=== PATIENT | male | born 1960 | race African-American/Black ===

== ENCOUNTER 2017-01-10 12:22 | Inpatient (IN) | payer OTHER ==
[2017-01-10 12:38] VITALS: BMI 22.5
--- NOTE | 2017-01-10 14:54 | HP ---
COWS - Scale Resting Pulse: 0= [place] 80 or Below Sweatin=Flushed/Facial Moisture Restless Observation: 3= Extraneous Movement Pupil Size: 2= Moderately Dilated Bone or Joint Aches: 2= Severe Diffuse Aches Runny Nose/ Eye Tearin= Runny Nose/Eyes GI Upset > 30mins: 3= Vomiting/Diarrhea Tremor Observation: 2= Slight Tremor Visible Yawning Observation: 2= >3x During Session Anxiety or Irritability: 2=Irritable/Anxious Goose Flesh Skin: 0=Smooth Skin COWS Score: 20 Admission ROS BHS - HPI Chief Complaint: I NEED HELP TO STOP USING HEROIN,COCAINE Allergies/Adverse Reactions: Allergies Allergy/AdvReac Type Severity Reaction Status Date / Time No Known Allergies Allergy Verified 01/10/17 14:44 History of Present Illness: THIS 56 YEARS OLD MALE WITH HEROIN AND COCAINE DEPENDENCE,SEEKING DETOX,LAST TREATMENT [facility] 08/15/15 TO 08/24/15 HEPATITIS C ANXIETY AND DEPRESSION NICOTINE DEPENDENCE LONGEST PERIOD OF SOBRIETY 1 YEAR Exam Limitations: No Limitations - Ebola screening Have you traveled outside of the country in the last 21 days: No Have you been sick,other than usual withdrawal symptoms: No - Review of Systems Constitutional: Chills, Diaphoresis, Loss of Appetite, Malaise, Night Sweats, Changes in sleep, Weakness, Unintentional Wgt. Loss EENT: reports: Tearing, Nose Congestion Respiratory: reports: No Symptoms reported Cardiac: reports: No Symptoms Reported GI: reports: Diarrhea, Nausea, Abdominal cramping : reports: No Symptoms Reported Musculoskeletal: reports: Back Pain, Muscle Pain Integumentary: reports: Dryness Neuro: reports: Headache, Tremors Endocrine: reports: No Symptoms Reported Hematology: reports: No Symptoms Reported Psychiatric: reports: No Sypmtoms Reported, Judgement Intact, Mood/Affect Appropiate, Anxious, Depressed (INSOMNIA) Patient History - Patient Medical History Hx Anemia: No Hx Asthma: No Hx Chronic Obstructive Pulmonary Disease (COPD): No Hx Cancer: No Hx Cardiac Disorders: No Hx Congestive Heart Failure: No Hx Hypertension: No Hx Hypercholesterolemia: No Hx Pacemaker: No HX Cerebrovascular Accident: No Hx Seizures: No Hx Dementia: No Hx Diabetes: No Hx Gastrointestinal Disorders: No Hx Liver Disease: Yes (hep C) Hx Genitourinary Disorders: No Hx Sexually Transmitted Disorders: No Hx Renal Disease (ESRD): No Hx Thyroid Disease: No Hx Human Immunodeficiency Virus (HIV): No (NEGATIVE HX 2015) Hx Hepatitis C: Yes (TREATED) Hx Depression: Yes Hx Suicide Attempt: No Hx Schizophrenia: No Other Medical History: NO SUICIDAL,NO HOMICIDAL - Patient Surgical History Past Surgical History: No Hx Neurologic Surgery: No Hx Cataract Extraction: No Hx Cardiac Surgery: No Hx Lung Surgery: No Hx Breast Surgery: No Hx Breast Biopsy: No Hx Abdominal Surgery: No Hx Appendectomy: No Hx Cholecystectomy: No Hx Genitourinary Surgery: No Hx Section: No Hx Orthopedic Surgery: No Anesthesia Reaction: No - PPD History Previous Implant?: Yes Documented Results: Positive w/o proof Date: 10/31/13 PPD to be Administered?: No - Smoking Cessation Smoking history: Current every day smoker Have you smoked in the past 12 months: Yes Aproximately how many cigarettes per day: 10 Hx Chewing Tobacco Use: No Initiated information on smoking cessation: Yes 'Breaking Loose' booklet given: 01/10/17 - Substance & Tx. History Hx Alcohol Use: No Hx Substance Use: Yes Substance Use Type: Cocaine, Heroin Hx Substance Use Treatment: Yes (201508/09/15 TO 08/24/15 REHAB) - Substances Abused Heroin Route: Inhalation Frequency: Daily Amount used: 3 BAGS Age of first use: 23 Date of Last Use: 01/09/17 Cocaine Route: Inhalation Frequency: 1-2 times per week Amount used: $25 Age of first use: 23 Date of Last Use: 01/03/17 Family Disease History - Family Disease History Family Disease History: Other: Brother (ADDICTED TO DRUGS) Admission Physical Exam S - Vital Signs Vital Signs: Vital Signs - 24 hr 01/10/17 12:36 Temperature 98.0 F Pulse Rate 80 Respiratory 18 Rate Blood Pressure 140/80 - Physical General Appearance: Yes: Moderate Distress, Intoxicated, Tremorous, Irritable, Sweating, Anxious HEENTM: Yes: Normal ENT Inspection, Normocephalic, ELOINA Respiratory: Yes: Lungs Clear, Normal Breath Sounds, No Respiratory Distress Neck: Yes: No masses,lesions,Nodules, Supple, Trachea in good position Breast: Yes: Within Normal Limits Cardiology: Yes: Within Normal Limits, Regular Rhythm, Regular Rate, S1, S2 Abdominal: Yes: Within Normal Limits, Normal Bowel Sounds, Non Tender, Flat, Soft Genitourinary: Yes: Within Normal Limits Back: Yes: Within Normal Limits Musculoskeletal: Yes: Within Normal Limits Extremities: Yes: Within Normal Limits, Normal Capillary Refill, Normal Inspection, Normal Range of Motion Neurological: Yes: efficiency analyst II-XII NML intact, Fully Oriented, Alert, Motor Strength 5/5 Integumentary: Yes: Within Normal Limits Lymphatic: Yes: Within Normal Limits - Diagnostic (1) Opioid dependence with withdrawal Current Visit: Yes Status: Acute (2) Cannabis dependence Current Visit: No Status: Acute (3) Drug-induced mood disorder Current Visit: Yes Status: Acute (4) MDD (major depressive disorder), recurrent, severe, with psychosis Current Visit: No Status: Acute (5) Hepatitis C Current Visit: No Status: Chronic Qualifiers: Viral hepatitis chronicity: chronic Hepatic coma status: without hepatic coma Qualified Code(s): B18.2 - Chronic viral hepatitis C (6) Nicotine dependence Current Visit: Yes Status: Acute (7) Cocaine dependence Current Visit: Yes Status: Acute Cleared for Admission [facility] - Detox or Rehab [facility] Level of Care: Medically Managed Detox Regimen/Protocol: Methadone [facility] Breath Alcohol Content Breath Alcohol Content: 0 Urine Drug Screen - Results Drug Screen Negative: No Urine Drug Screen Results: TRAVIS-Cocaine, OPI-Opiates, PCP-Phencyclidine
[2017-01-10] MEDS ORDERED: LOPERAMIDE HCL 2 MG CAPSULE PO PRN (15:10)
[2017-01-10] MEDS ORDERED: P-EPHED 60MG/TRIPROLIDI 2.5MG TABLET PO PRN (15:10)
[2017-01-10] MEDS ORDERED: MAGNESIUM CITRATE 300 ML BOTTLE PO PRN (15:10)
[2017-01-10] MEDS ORDERED: IBUPROFEN 400 MG TABLET (FP) PO PRN (15:10)
[2017-01-10] MEDS ORDERED: MAG HYDROX/AL HYDROX/SIMETH 30 ML UNIT-DOSE CUP PO PRN (15:10)
[2017-01-10] MEDS ORDERED: ACETAMINOPHEN 325 MG TABLET (FP) PO PRN (15:10)
[2017-01-10] MEDS ORDERED: guaiFENesin/D-METHORPHAN HB 10 ML UNIT-DOSE CUPS PO PRN (15:10)
[2017-01-10] MEDS ORDERED: MENTHOL/PHENOL 1 EACH UD MM PRN (15:10)
[2017-01-10] MEDS ORDERED: hydrOXYzine PAMOATE 25 MG CAPSULE (FP) PO PRN (15:10)
[2017-01-10] MEDS ORDERED: MAGNESIUM HYDROX 2400MG/30ML ORAL SUSPENSION 30 ML CUP PO PRN (15:10)
[2017-01-10] MEDS ORDERED: NICOTINE POLACRILEX 2 MG GUM BC PRN (15:10)
[2017-01-10] MEDS ORDERED: METHADONE HCL 10 MG TABLET (FOR DETOX USE ONLY) PO ONE ×2 (16:30→23:00)
[2017-01-10] MEDS: cloNIDine HCL 0.1 MG TABLET PO SCH ×2 (18:08→22:14)
[2017-01-10] MEDS: diazePAM 5 MG TABLET PO PRN ×2 (18:09→22:14)
--- NOTE | 2017-01-10 19:14 | CONSULT ---
[facility] Psychiatric Consult - Data Date of interview: 01/10/17 Admission source: [facility] Identifying data: One of several admissions to [facility] [place] [facility] for this 56 y/o AA male seeking detox treatment on for heroin and cocaine dependence.Patient is without children,domiciled and currently employed. Substance Abuse History: Confirmed by patient in this interview. See [facility] report for details. Smoking history: Current every day smoker. Have you smoked in the past 12 months: Yes. Aproximately how many cigarettes per day: 10. Hx Chewing Tobacco Use: No. Initiated information on smoking cessation: Yes. 'Breaking Loose' booklet given: 01/10/17. - Substance & Tx. History. Hx Alcohol Use: No. Hx Substance Use: Yes. Substance Use Type: Cocaine, Heroin. Hx Substance Use Treatment: Yes (201508/09/15 TO 08/24/15 REHAB). - Substances Abused. Heroin. Route: Inhalation. Frequency: Daily. Amount used: 3 BAGS. Age of first use: 23. Date of Last Use: 01/09/17. Cocaine. Route: Inhalation. Frequency: 1-2 times per week. Amount used: $25. Age of first use: 23. Date of Last Use: 01/03/17 Medical History: Hepatitis C (treated). Psychiatric History: Patient denies history of psychiatric hospitalizations.Did get psychiatric care during his seven years of incarceration.Diagnosed with MDD and treated in the past with sertraline and seroquel.Mr Medina did pursue OPD care after his release from longterm but he rapidly dropped out of treatment.Has been off psychotropic medications " for some time." No current OPD care providers.Patient indicates that he has been heavily invested in substance abuse.Denies history of suicide attempts.Mr Medina is known to the [facility] ([facility]). Physical/Sexual Abuse/Trauma History: No reported history of abuse. Additional Comment: Urine Drug Screen Results: TRAVIS-Cocaine, OPI-Opiates, PCP- Phencyclidine.Noted. Mental Status Exam - Mental Status Exam Alert and Oriented to: Time, Place, Person Cognitive Function: Good Patient Appearance: Well Groomed (wearing eyeglasses) Mood: Withdrawn, Anxious, Hopeful Affect: Mood Congruent, Constricted Patient Behavior: Fatigued, Appropriate, Cooperative Speech Pattern: Clear Voice Loudness: Normal Thought Process: Goal Oriented Thought Disorder: Not Present Hallucinations: Denies Suicidal Ideation: Denies Homicidal Ideation: Denies Insight/Judgement: Poor Sleep: Poorly, Difficulty falling asleep Appetite: Good Muscle strength/Tone: Normal Gait/Station: Normal Psychiatric Findings - Problem List ([place] 1, 2,3) (1) Opioid dependence with withdrawal Current Visit: Yes Status: Acute (2) Cocaine dependence Current Visit: Yes Status: Acute Qualifiers: Substance use status: uncomplicated Qualified Code(s): F14.20 - Cocaine dependence, uncomplicated (3) PCP abuse Current Visit: Yes Status: Acute (4) Nicotine dependence Current Visit: Yes Status: Acute Qualifiers: Nicotine product type: cigarettes Substance use status: in withdrawal Qualified Code(s): F17.213 - Nicotine dependence, cigarettes, with withdrawal (5) Drug-induced mood disorder Current Visit: Yes Status: Acute (6) Insomnia Current Visit: Yes Status: Acute - Initial Treatment Plan Initial Treatment Plan: Psychoeducation.Support.Detoxification.Seroquel 50 mg po hs.Side effects/benefits discussed with patient.He agrees with this careplan.Observation.
[2017-01-10] MEDS: THIAMINE HCL 100 MG TABLET (FP) PO SCH (22:14)
[2017-01-10] MEDS: QUEtiapine FUMARATE 50 MG TABLET PO SCH (22:14)
[2017-01-10] MEDS: CYCLOBENZAPRINE HCL 10 MG TABLET (FP) PO PRN (22:14)
[2017-01-11 02:25] LABS: PH,URINE 6.5 (5.0-8.0); URINE APPEARANCE CLEAR; URINE BILIRUBIN 1+ (NEGATIVE); URINE BLOOD NEGATIVE (NEGATIVE); URINE COLOR YELLOW; URINE GLUCOSE (UA) NEGATIVE (NEGATIVE); URINE KETONE NEGATIVE (NEGATIVE); URINE NITRITE NEGATIVE (NEGATIVE); URINE PROTEIN NEGATIVE (NEGATIVE); URINE UROBILINOGEN 0.2 mg/dL (0.2-1.0)
[2017-01-11] MEDS ORDERED: METHADONE HCL 10 MG TABLET (FOR DETOX USE ONLY) PO ONE (10:00)
[2017-01-11 10:09] LABS: MCH 31.3 pg (25.7-33.7); MCHC 33.5 g/dl (32.0-35.9); MEAN CELL VOLUME 93.4 fl (80-96); MEAN PLT VOLUME 9.2 fl (7.5-11.1); PLATELET COUNT 161 K/MM3 (134-434); RDW 13.2 % (11.9-15.9); WHITE BLOOD COUNT 6.5 K/mm3 (4.0-10.0)
[2017-01-11] MEDS: PRENATAL VITAMINS W/ FOLIC ACID TABLET (FP) PO SCH (10:14)
[2017-01-11] MEDS: cloNIDine HCL 0.1 MG TABLET PO SCH ×2 (10:14→22:21)
[2017-01-11] MEDS: diazePAM 5 MG TABLET PO PRN ×2 (10:14→22:21)
[2017-01-11 10:44] LABS: ALBUMIN 3.2 g/dl (3.4-5.0); ALK PHOS 46 U/L (45-117); ANION GAP 6 (8-16); BILIRUBIN,TOTAL 0.3 mg/dL (0.2-1.0); CALCIUM 8.5 mg/dL (8.5-10.1); CO2 27 mmol/L (21-32); CREATININE 0.9 mg/dL (0.7-1.3); GLUCOSE,RANDOM 83 mg/dL (74-106); SGOT/AST 18 U/L (15-37); SGPT/ALT 17 U/L (12-78); TOT PROT 6.4 g/dl (6.4-8.2)
[2017-01-11 11:37] LABS: URINE LEUK ESTERASE Negative (NEGATIVE)
--- NOTE | 2017-01-11 15:05 | PN ---
S COWS - Scale Resting Pulse: 0= [place] 80 or Below Sweatin= Chills/Flushing Restless Observation: 1= Difficult to Sit Still Pupil Size: 0= Normal to Room Light Bone or Joint Aches: 2= Severe Diffuse Aches Runny Nose/ Eye Tearin= Nasal Congestion GI Upset > 30mins: 0= None Tremor Observation of Outstretched Hands: 2= Slight Tremor Visible Yawning Observation: 2= >3x During Session Anxiety or Irritability: 2=Irritable/Anxious Goose Flesh Skin: 3=Piloerection COWS Score: 14 BHS Progress Note (SOAP) Subjective: Tremors, Body Aches, Fatigue. Objective: PT. A & O X 3, OBSERVED AMBULATING ON UNIT. NO ACUTE DISTRESS. 01/11/17 15:03 Vital Signs Temperature 97.0 F L 01/11/17 14:43 Pulse Rate 67 01/11/17 14:43 Respiratory Rate 18 01/11/17 14:43 Blood Pressure 98/65 01/11/17 14:43 O2 Sat by Pulse Oximetry (%) Laboratory Tests 01/10/17 01/11/17 01/11/17 22:50 07:40 07:40 WBC 6.5 RBC 4.56 Hgb 14.3 Hct 42.6 MCV 93.4 MCH 31.3 MCHC 33.5 RDW 13.2 Plt Count 161 MPV 9.2 Sodium 140 Potassium 4.3 Chloride 107 Carbon Dioxide 27 Anion Gap 6 L BUN 15 Creatinine 0.9 Creat Clearance w eGFR > 60 Random Glucose 83 Calcium 8.5 Total Bilirubin 0.3 D AST 18 D ALT 17 D Alkaline Phosphatase 46 Total Protein 6.4 Albumin 3.2 L Urine Color Yellow Urine Appearance Clear Urine pH 6.5 Ur Specific [place] 1.025 Urine Protein Negative Urine Glucose (UA) Negative Urine Ketones Negative Urine Blood Negative Urine Nitrite Negative Urine Bilirubin 1+ H Urine Urobilinogen 0.2 Ur Leukocyte Esterase Negative RPR Titer 01/11/17 07:40 WBC RBC Hgb Hct MCV MCH MCHC RDW Plt Count MPV Sodium Potassium Chloride Carbon Dioxide Anion Gap BUN Creatinine Creat Clearance w eGFR Random Glucose Calcium Total Bilirubin AST ALT Alkaline Phosphatase Total Protein Albumin Urine Color Urine Appearance Urine pH Ur Specific [place] Urine Protein Urine Glucose (UA) Urine Ketones Urine Blood Urine Nitrite Urine Bilirubin Urine Urobilinogen Ur Leukocyte Esterase RPR Titer Nonreactive LABS NOTED. Assessment: 01/11/17 15:03 WITHDRAWAL SYMPTOMS. Plan: CONTINUE DETOX. INCREASE DAILY PO FLUID INTAKE.
[2017-01-11] MEDS: QUEtiapine FUMARATE 50 MG TABLET PO SCH (22:21)
[2017-01-11] MEDS: THIAMINE HCL 100 MG TABLET (FP) PO SCH (22:21)
[2017-01-11] MEDS: CYCLOBENZAPRINE HCL 10 MG TABLET (FP) PO PRN (22:21)
--- NOTE | 2017-01-11 22:31 | EKG ---
Test Reason : Blood Pressure : / mmHG Vent. Rate : 070 BPM Atrial Rate : 070 BPM P-R Int : 196 ms QRS Dur : 078 ms QT Int : 398 ms P-R-T Axes : 082 078 066 degrees QTc Int : 429 ms POOR DATA QUALITY, INTERPRETATION MAY BE ADVERSELY AFFECTED NORMAL SINUS RHYTHM SEPTAL INFARCT , AGE UNDETERMINED ABNORMAL ECG NO PREVIOUS ECGS AVAILABLE Confirmed by CASEY RICO MD ([id number]) on 01/11/2017 10:31:02 PM Referred By: Confirmed By:CASEY RICO MD
[2017-01-12] MEDS ORDERED: METHADONE HCL 5 MG TABLET (FOR DETOX USE ONLY) PO ONE (10:00)
[2017-01-12] MEDS: cloNIDine HCL 0.1 MG TABLET PO SCH ×2 (10:08→22:09)
[2017-01-12] MEDS: PRENATAL VITAMINS W/ FOLIC ACID TABLET (FP) PO SCH (10:08)
--- NOTE | 2017-01-12 10:25 | PN ---
BHS COWS - Scale Resting Pulse: 0= [place] 80 or Below Sweatin= Chills/Flushing Restless Observation: 3= Extraneous Movement Pupil Size: 0= Normal to Room Light Bone or Joint Aches: 4=Acute Joint/Muscle Pain Runny Nose/ Eye Tearin= Nasal Congestion GI Upset > 30mins: 0= None Tremor Observation of Outstretched Hands: 2= Slight Tremor Visible Yawning Observation: 1= 1-2x During Session Anxiety or Irritability: 2=Irritable/Anxious Goose Flesh Skin: 0=Smooth Skin COWS Score: 14 BHS Progress Note (SOAP) Subjective: ANXIETY,SWEATS,FATIGUE. Objective: 01/12/17 10:27 Vital Signs Temperature 97.5 F L 01/12/17 10:00 Pulse Rate 73 01/12/17 10:00 Respiratory Rate 18 01/12/17 10:00 Blood Pressure 120/75 01/12/17 10:00 O2 Sat by Pulse Oximetry (%) Laboratory Last Values WBC 6.5 K/mm3 (4.0-10.0) 01/11/17 07:40 RBC 4.56 M/mm3 (4.00-5.60) 01/11/17 07:40 Hgb 14.3 GM/dL (11.7-16.9) 01/11/17 07:40 Hct 42.6 % (35.4-49) 01/11/17 07:40 MCV 93.4 fl (80-96) 01/11/17 07:40 MCH 31.3 pg (25.7-33.7) 01/11/17 07:40 MCHC 33.5 g/dl (32.0-35.9) 01/11/17 07:40 RDW 13.2 % (11.9-15.9) 01/11/17 07:40 Plt Count 161 K/MM3 (134-434) 01/11/17 07:40 MPV 9.2 fl (7.5-11.1) 01/11/17 07:40 Sodium 140 mmol/L (136-145) 01/11/17 07:40 Potassium 4.3 mmol/L (3.5-5.1) 01/11/17 07:40 Chloride 107 mmol/L (98-107) 01/11/17 07:40 Carbon Dioxide 27 mmol/L (21-32) 01/11/17 07:40 Anion Gap 6 (8-16) L 01/11/17 07:40 BUN 15 mg/dL (7-18) 01/11/17 07:40 Creatinine 0.9 mg/dL (0.7-1.3) 01/11/17 07:40 Creat Clearance w eGFR > 60 (>60) 01/11/17 07:40 Random Glucose 83 mg/dL (74-106) 01/11/17 07:40 Calcium 8.5 mg/dL (8.5-10.1) 01/11/17 07:40 Total Bilirubin 0.3 mg/dL (0.2-1.0) D 01/11/17 07:40 AST 18 U/L (15-37) D 01/11/17 07:40 ALT 17 U/L (12-78) D 01/11/17 07:40 Alkaline Phosphatase 46 U/L (45-117) 01/11/17 07:40 Total Protein 6.4 g/dl (6.4-8.2) 01/11/17 07:40 Albumin 3.2 g/dl (3.4-5.0) L 01/11/17 07:40 Urine Color Yellow 01/10/17 22:50 Urine Appearance Clear 01/10/17 22:50 Urine pH 6.5 (5.0-8.0) 01/10/17 22:50 Ur Specific [place] 1.025 (1.001-1.035) 01/10/17 22:50 Urine Protein Negative (NEGATIVE) 01/10/17 22:50 Urine Glucose (UA) Negative (NEGATIVE) 01/10/17 22:50 Urine Ketones Negative (NEGATIVE) 01/10/17 22:50 Urine Blood Negative (NEGATIVE) 01/10/17 22:50 Urine Nitrite Negative (NEGATIVE) 01/10/17 22:50 Urine Bilirubin 1+ (NEGATIVE) H 01/10/17 22:50 Urine Urobilinogen 0.2 mg/dL (0.2-1.0) 01/10/17 22:50 Ur Leukocyte Esterase Negative (NEGATIVE) 01/10/17 22:50 RPR Titer Nonreactive (NONREACTIVE) 01/11/17 07:40 Assessment: 11/24/17 10:27 WITHDRAWAL SX Plan: CONTINUE DETOX
[2017-01-12] MEDS: CYCLOBENZAPRINE HCL 10 MG TABLET (FP) PO PRN (22:09)
[2017-01-12] MEDS: diazePAM 5 MG TABLET PO PRN (22:09)
[2017-01-12] MEDS: QUEtiapine FUMARATE 50 MG TABLET PO SCH (22:09)
[2017-01-12] MEDS: THIAMINE HCL 100 MG TABLET (FP) PO SCH (22:09)
[2017-01-13] MEDS ORDERED: METHADONE HCL 5 MG TABLET (FOR DETOX USE ONLY) PO ONE (10:00)
[2017-01-13] MEDS: cloNIDine HCL 0.1 MG TABLET PO SCH ×2 (10:15→22:12)
[2017-01-13] MEDS: PRENATAL VITAMINS W/ FOLIC ACID TABLET (FP) PO SCH (10:15)
--- NOTE | 2017-01-13 13:57 | PN ---
BHS Progress Note (SOAP) Subjective: Stomach Cramping, Tremors, Fatigue, Sweating, Body Aches. Objective: PT. A & O X 2 (UNCERTAIN ABOUT DAY / DATE). NO ACUTE DISTRESS. 01/13/17 13:52 Vital Signs Temperature 97.5 F L 01/13/17 10:00 Pulse Rate 74 01/13/17 10:00 Respiratory Rate 18 01/13/17 10:00 Blood Pressure 122/79 01/13/17 10:00 O2 Sat by Pulse Oximetry (%) Laboratory Tests 01/10/17 01/11/17 01/11/17 22:50 07:40 07:40 WBC 6.5 RBC 4.56 Hgb 14.3 Hct 42.6 MCV 93.4 MCH 31.3 MCHC 33.5 RDW 13.2 Plt Count 161 MPV 9.2 Sodium 140 Potassium 4.3 Chloride 107 Carbon Dioxide 27 Anion Gap 6 L BUN 15 Creatinine 0.9 Creat Clearance w eGFR > 60 Random Glucose 83 Calcium 8.5 Total Bilirubin 0.3 D AST 18 D ALT 17 D Alkaline Phosphatase 46 Total Protein 6.4 Albumin 3.2 L Urine Color Yellow Urine Appearance Clear Urine pH 6.5 Ur Specific [place] 1.025 Urine Protein Negative Urine Glucose (UA) Negative Urine Ketones Negative Urine Blood Negative Urine Nitrite Negative Urine Bilirubin 1+ H Urine Urobilinogen 0.2 Ur Leukocyte Esterase Negative RPR Titer 01/11/17 07:40 WBC RBC Hgb Hct MCV MCH MCHC RDW Plt Count MPV Sodium Potassium Chloride Carbon Dioxide Anion Gap BUN Creatinine Creat Clearance w eGFR Random Glucose Calcium Total Bilirubin AST ALT Alkaline Phosphatase Total Protein Albumin Urine Color Urine Appearance Urine pH Ur Specific [place] Urine Protein Urine Glucose (UA) Urine Ketones Urine Blood Urine Nitrite Urine Bilirubin Urine Urobilinogen Ur Leukocyte Esterase RPR Titer Nonreactive LABS NOTED. Assessment: 01/13/17 13:55 WITHDRAWAL SYMPTOMS. Plan: CONTINUE DETOX. PT. REPORTS THAT HE HAS BEEN HEARING VOICES FROM "[place]." WHEN ASKED, PATIENT DENIES SUICIDAL / HOMICIDAL IDEATION. PSYCH CONSULT WITH PSYCHIATRIST DR. DIMITRIOS MAYNARD.
--- NOTE | 2017-01-13 18:18 | PN ---
Psychiatric Progress Note Vital Signs: Vital Signs Period Temp Pulse Resp BP Sys/Hennessy Pulse Ox Last 24 Hr 97.5 F-99.7 F 69-78 16-18 115-127/65-79 Date of Session: 01/13/17 Chief Complaint:: " I am fine.Much better than yesterday." HPI: Asked to see this patient for alteration of mental status.. ROS: Unremarkable.Patient is cognitively intact.No somatic complaints. Current Medications: Active Medications Generic Name Dose Route Start Last Admin Trade Name Freq PRN Reason Stop Dose Admin Acetaminophen 650 mg 01/10/17 15:10 Tylenol - PO Q4H PRN FEVER OR PAIN Al Hydroxide/Mg Hydroxide 30 ml 01/10/17 15:10 Mylanta Oral Suspension - PO Q6H PRN DYSPEPSIA Clonidine 0.1 mg 01/10/17 16:30 01/13/17 10:15 Catapres - PO 0.1 mg BID JAMES Administration Cyclobenzaprine HCl 10 mg 01/10/17 15:16 01/12/17 22:09 Flexeril - PO 10 mg TID PRN Administration MUSCLE SPASMS Eucalyptus/Menthol/Phenol/Sorbitol 1 each 01/10/17 15:10 Cepastat Lozenge - MM Q4H PRN SORE THROAT Guaifenesin 10 ml 01/10/17 15:10 Robitussin Dm - PO Q6H PRN COUGH Hydroxyzine Pamoate 25 mg 01/10/17 15:10 Vistaril - PO Q4H PRN AGITATION Ibuprofen 400 mg 01/10/17 15:10 Motrin - PO Q6H PRN SEVERE PAIN Loperamide HCl 4 mg 01/10/17 15:10 Imodium - PO Q6H PRN DIARRHEA Magnesium Citrate 300 ml 01/10/17 15:10 Citroma - PO Q48H PRN CONSTIPATION Magnesium Hydroxide 30 ml 01/10/17 15:10 Milk Of Magnesia - PO DAILY PRN CONSTIPATION Methadone HCl 5 mg 01/15/17 06:00 Dolophine - PO 01/15/17 06:01 ONCE@0600 ONE Methadone HCl 10 mg 01/14/17 10:00 Dolophine - PO 01/14/17 10:01 ONCE ONE Nicotine Polacrilex 2 mg 01/10/17 15:10 Nicorette Gum - BC Q2H PRN NICOTINE REPLACEMENT RX Multivit/Folic Acid/Iron 1 tab 01/11/17 10:00 01/13/17 10:15 Vitamins (Sjr) - PO 1 tab DAILY JAMES Administration Pseudoephedrine/Triprolidine 1 combo 01/10/17 15:10 Actifed - PO TID PRN NASAL CONGESTION Quetiapine Fumarate 50 mg 01/10/17 22:00 01/12/17 22:09 Seroquel - PO 50 mg HS JAMES Administration Thiamine HCl 100 mg 01/10/17 22:00 01/12/17 22:09 Vitamin B1 - PO 100 mg HS JAMES Administration Medication(s) Change(s): No clinical justification for changes of medications. Current Side Effect: No Lab tests ordered: No Lab tests reviewed: Yes Provider note:: Case discussed in the morning with ART SPECIALIST Александр Fuller.Chart reviewed.Patient is re-interviewed at bedside.Found in bed,awake and resting comfortably.Mr Medina is noted as neatly groomed,tranquil and well- controlled.He reports feeling much better,more capable of appreciating the negative effects of his addictions.Aware of the stress borne by his family because of his abuse of substances and now willing to address his issues in therapy.Uneventful hospital course.Stable mental status. Total face to face time:: 25 Mental Status Exam - Mental Status Exam Alert and Oriented to: Time, Place, Person Cognitive Function: Good Patient Appearance: Well Groomed (resting in bed ; tranquil,serene) Mood: Hopeful, Euthymic Affect: Appropriate, Normal Range Patient Behavior: Appropriate (well-mannered,friendly and future-oriented), Cooperative Speech Pattern: Clear, Appropriate Voice Loudness: Normal Thought Process: Intact, Goal Oriented Thought Disorder: Not Present Hallucinations: Denies Suicidal Ideation: Denies Homicidal Ideation: Denies Insight/Judgement: Fair (much improved) Sleep: Well Appetite: Good Muscle strength/Tone: Normal Gait/Station: Normal Psychiatric Treatment Plan - Problem List (1) Opioid dependence with withdrawal Comment: . (2) Cocaine dependence Qualifiers: Substance use status: uncomplicated Qualified Code(s): F14.20 - Cocaine dependence, uncomplicated Comment: . (3) PCP abuse Comment: . (4) Nicotine dependence Qualifiers: Nicotine product type: cigarettes Substance use status: in withdrawal Qualified Code(s): F17.213 - Nicotine dependence, cigarettes, with withdrawal Comment: . (5) Drug-induced mood disorder Comment: . (6) Insomnia Qualifiers: Insomnia type: unspecified Qualified Code(s): G47.00 - Insomnia, unspecified Comment: .
[2017-01-13] MEDS: THIAMINE HCL 100 MG TABLET (FP) PO SCH (22:12)
[2017-01-13] MEDS: CYCLOBENZAPRINE HCL 10 MG TABLET (FP) PO PRN (22:12)
[2017-01-13] MEDS: QUEtiapine FUMARATE 50 MG TABLET PO SCH (22:13)
[2017-01-14] MEDS: cloNIDine HCL 0.1 MG TABLET PO SCH ×2 (09:44→22:23)
[2017-01-14] MEDS: PRENATAL VITAMINS W/ FOLIC ACID TABLET (FP) PO SCH (09:45)
[2017-01-14] MEDS ORDERED: METHADONE HCL 10 MG TABLET (FOR DETOX USE ONLY) PO ONE (10:00)
--- NOTE | 2017-01-14 14:06 | PN ---
BHS Progress Note (SOAP) Subjective: Anxious, sweating, interrupted sleep Objective: 01/14/17 14:05 Last Vital Signs Temp Pulse Resp BP Pulse Ox 97.6 F 76 18 108/71 01/14/17 13:59 01/14/17 13:59 01/14/17 13:59 01/14/17 13:59 Laboratory Tests 01/10/17 01/11/17 01/11/17 22:50 07:40 07:40 WBC 6.5 RBC 4.56 Hgb 14.3 Hct 42.6 MCV 93.4 MCH 31.3 MCHC 33.5 RDW 13.2 Plt Count 161 MPV 9.2 Sodium 140 Potassium 4.3 Chloride 107 Carbon Dioxide 27 Anion Gap 6 L BUN 15 Creatinine 0.9 Creat Clearance w eGFR > 60 Random Glucose 83 Calcium 8.5 Total Bilirubin 0.3 D AST 18 D ALT 17 D Alkaline Phosphatase 46 Total Protein 6.4 Albumin 3.2 L Urine Color Yellow Urine Appearance Clear Urine pH 6.5 Ur Specific [place] 1.025 Urine Protein Negative Urine Glucose (UA) Negative Urine Ketones Negative Urine Blood Negative Urine Nitrite Negative Urine Bilirubin 1+ H Urine Urobilinogen 0.2 Ur Leukocyte Esterase Negative RPR Titer 01/11/17 07:40 WBC RBC Hgb Hct MCV MCH MCHC RDW Plt Count MPV Sodium Potassium Chloride Carbon Dioxide Anion Gap BUN Creatinine Creat Clearance w eGFR Random Glucose Calcium Total Bilirubin AST ALT Alkaline Phosphatase Total Protein Albumin Urine Color Urine Appearance Urine pH Ur Specific [place] Urine Protein Urine Glucose (UA) Urine Ketones Urine Blood Urine Nitrite Urine Bilirubin Urine Urobilinogen Ur Leukocyte Esterase RPR Titer Nonreactive Labs noted Assessment: 01/14/17 14:06 Withdrawal symptoms Plan: Continue detox Encouraged to drink lots of water
[2017-01-14 21:41] VITALS: TEMP 97.1
[2017-01-14] MEDS: THIAMINE HCL 100 MG TABLET (FP) PO SCH (22:23)
[2017-01-14] MEDS: QUEtiapine FUMARATE 50 MG TABLET PO SCH (22:23)
[2017-01-15] MEDS ORDERED: METHADONE HCL 5 MG TABLET (FOR DETOX USE ONLY) PO ONE (06:00)
[2017-01-15 06:19] VITALS: BP 122/74; PULSE 20
--- NOTE | 2017-01-15 10:44 | DS ---
[facility] Detox Discharge Summary Admission Date: 01/10/17 Discharge Date: 01/15/17 - History Present History: Cannabis Dependence, Cocaine Dependence, Opioid Dependence, Pcp Dependence Additional Comments: PATIENT GOING HOME SO THAT HE CAN RETURN TO WORK. PATIENT WILL ALSO RETURN TO [facility] OUTPATIENT SUBSTANCE USE TREATMENT [facility]GRAM ([facility]) FOR AFTERCARE. PATIENT WAS DISCHARGED FROM DETOX UNIT IN STABLE MEDICAL CONDITION. Pertinent Past History: Hep C, Depression, Nicotine Dependence, Insomnia, History of Positive PPD. - Physical Exam Results Vital Signs: Vital Signs Temperature 97.1 F L 01/15/17 06:18 Pulse Rate 20 L 01/15/17 06:18 Respiratory Rate 18 01/15/17 06:18 Blood Pressure 122/74 01/15/17 06:18 O2 Sat by Pulse Oximetry (%) Pertinent Admission Physical Exam Findings: WITHDRAWAL SYMPTOMS. Laboratory Tests 01/10/17 01/11/17 01/11/17 22:50 07:40 07:40 WBC 6.5 RBC 4.56 Hgb 14.3 Hct 42.6 MCV 93.4 MCH 31.3 MCHC 33.5 RDW 13.2 Plt Count 161 MPV 9.2 Sodium 140 Potassium 4.3 Chloride 107 Carbon Dioxide 27 Anion Gap 6 L BUN 15 Creatinine 0.9 Creat Clearance w eGFR > 60 Random Glucose 83 Calcium 8.5 Total Bilirubin 0.3 D AST 18 D ALT 17 D Alkaline Phosphatase 46 Total Protein 6.4 Albumin 3.2 L Urine Color Yellow Urine Appearance Clear Urine pH 6.5 Ur Specific [place] 1.025 Urine Protein Negative Urine Glucose (UA) Negative Urine Ketones Negative Urine Blood Negative Urine Nitrite Negative Urine Bilirubin 1+ H Urine Urobilinogen 0.2 Ur Leukocyte Esterase Negative RPR Titer 01/11/17 07:40 WBC RBC Hgb Hct MCV MCH MCHC RDW Plt Count MPV Sodium Potassium Chloride Carbon Dioxide Anion Gap BUN Creatinine Creat Clearance w eGFR Random Glucose Calcium Total Bilirubin AST ALT Alkaline Phosphatase Total Protein Albumin Urine Color Urine Appearance Urine pH Ur Specific [place] Urine Protein Urine Glucose (UA) Urine Ketones Urine Blood Urine Nitrite Urine Bilirubin Urine Urobilinogen Ur Leukocyte Esterase RPR Titer Nonreactive LABS NOTED. - Treatment Hospital Course: Detox Protocol Followed, Detoxed Safely, Responded well, Discharged Condition Good Patient has Accepted a Rehab Referral to: PT GOING HOME, WILL RETURN TO [facility] ([place], [place]) FOR AFTERCARE - Medication Discharge Medications: Ambulatory Orders Quetiapine Fumarate [Seroquel] 100 mg PO HS #30 tablet 01/10/17 - Diagnosis (1) Cocaine dependence Status: Chronic Qualifiers: Substance use status: uncomplicated Qualified Code(s): F14.20 - Cocaine dependence, uncomplicated (2) Opioid dependence with withdrawal Status: Acute (3) Cannabis dependence Status: Acute (4) Insomnia Status: Acute Qualifiers: Insomnia type: unspecified Qualified Code(s): G47.00 - Insomnia, unspecified (5) PCP abuse Status: Acute (6) Hepatitis C Status: Chronic Qualifiers: Viral hepatitis chronicity: chronic Hepatic coma status: without hepatic coma Qualified Code(s): B18.2 - Chronic viral hepatitis C (7) Nicotine dependence Status: Chronic Qualifiers: Nicotine product type: cigarettes Substance use status: in withdrawal Qualified Code(s): F17.213 - Nicotine dependence, cigarettes, with withdrawal (8) Drug-induced mood disorder Status: Acute - AMA Did Patient Leave Against Medical Advice: No
== END 2017-01-15 09:10 | disposition home or self-care (01) | DRG 773 ==
LOC: YASAS 12:22 → Y3N 16:00
PROVIDERS: ADMIT Internal Medicine; ATTEND Internal Medicine
PROC: HZ2ZZZZ Detoxification Services for Substance Abuse Treatment (ICD-10-PCS; principal; 2017-01-10)
DX: F11.23 Opioid dependence with withdrawal (principal); F14.20 Cocaine dependence, uncomplicated; F12.20 Cannabis dependence, uncomplicated; F16.10 Hallucinogen abuse, uncomplicated; F17.213 Nicotine dependence, cigarettes, with withdrawal; F19.24 Other psychoactive substance dependence with psychoactive substance-induced mood disorder; F41.9 Anxiety disorder, unspecified; F33.3 Major depressive disorder, recurrent, severe with psychotic symptoms; G47.00 Insomnia, unspecified; B18.2 Chronic viral hepatitis C; R76.11 Nonspecific reaction to tuberculin skin test without active tuberculosis
CPT/HCPCS: 36415; 71020-TC; 80053; 81003; 85027; 86593; 93005; 93010

== ENCOUNTER 2017-01-30 09:12 | Inpatient (IN) | payer OTHER ==
[2017-01-30 11:28] VITALS: BMI 21.6
--- NOTE | 2017-01-30 13:47 | HP ---
COWS - Scale Resting Pulse: 0= [place] 80 or Below Sweatin= Chills/Flushing Restless Observation: 3= Extraneous Movement Pupil Size: 0= Normal to Room Light Bone or Joint Aches: 2= Severe Diffuse Aches Runny Nose/ Eye Tearin= Runny Nose/Eyes GI Upset > 30mins: 1= Stomach Cramp Tremor Observation: 2= Slight Tremor Visible Yawning Observation: 1= 1-2x During Session Anxiety or Irritability: 2=Irritable/Anxious Goose Flesh Skin: 0=Smooth Skin COWS Score: 14 Admission ROS S - [facility] Chief Complaint: withdrawal sx Allergies/Adverse Reactions: Allergies Allergy/AdvReac Type Severity Reaction Status Date / Time No Known Allergies Allergy Verified 01/30/17 12:10 History of Present Illness: 56 years old male with long history of heroin nicotine dependence has weight loss positive ppd and depression and anxiety is admitted to detox Exam Limitations: No Limitations - Ebola screening Have you traveled outside of the country in the last 21 days: No Have you had contact with anyone from an Ebola affected area: No Have you been sick,other than usual withdrawal symptoms: No Do you have a fever: No - Review of Systems Constitutional: Loss of Appetite, Changes in sleep, Unintentional Wgt. Loss, Unexplained wgt Loss EENT: reports: Blurred Vision (eye glasses) Respiratory: reports: No Symptoms reported Cardiac: reports: No Symptoms Reported GI: reports: Nausea, Poor Appetite, Poor Fluid Intake, Indigestion, Abdominal cramping : reports: No Symptoms Reported Musculoskeletal: reports: No Symptoms Reported Integumentary: reports: No Symptoms Reported Neuro: reports: Tremors Endocrine: reports: No Symptoms Reported Hematology: reports: No Symptoms Reported Psychiatric: reports: Judgement Intact, Orientated x3, Depressed Other Systems: Reviewed and Negative Patient History - Patient Medical History Hx Anemia: No Hx Asthma: No Hx Chronic Obstructive Pulmonary Disease (COPD): No Hx Cancer: No Hx Cardiac Disorders: No Hx Congestive Heart Failure: No Hx Hypertension: No Hx Hypercholesterolemia: No Hx Pacemaker: No HX Cerebrovascular Accident: No Hx Seizures: No Hx Dementia: No Hx Diabetes: No Hx Gastrointestinal Disorders: No Hx Liver Disease: Yes (hep C) Hx Genitourinary Disorders: No Hx Sexually Transmitted Disorders: No Hx Renal Disease (ESRD): No Hx Thyroid Disease: No Hx Human Immunodeficiency Virus (HIV): No (NEGATIVE HX 2015) Hx Hepatitis C: Yes (TREATED) Hx Depression: Yes Hx Suicide Attempt: No Hx Bipolar Disorder: No Hx Schizophrenia: No - Patient Surgical History Past Surgical History: No Hx Neurologic Surgery: No Hx Cataract Extraction: No Hx Cardiac Surgery: No Hx Lung Surgery: No Hx Breast Surgery: No Hx Breast Biopsy: No Hx Abdominal Surgery: No Hx Appendectomy: No Hx Cholecystectomy: No Hx Genitourinary Surgery: No Hx Orthopedic Surgery: No - PPD History Previous Implant?: Yes Documented Results: Positive w/proof Implanted On Prior [facility] Admission?: No Date: 10/31/13 Results: CXR negative PPD to be Administered?: No - Smoking Cessation Smoking history: Current every day smoker Have you smoked in the past 12 months: Yes Aproximately how many cigarettes per day: 12 Cigars Per Day: 0 Hx Chewing Tobacco Use: No Initiated information on smoking cessation: Yes 'Breaking Loose' booklet given: 01/30/17 - Substance & Tx. History Hx Alcohol Use: No Hx Substance Use: Yes Substance Use Type: Cocaine, Marijuana, Opiates Hx Substance Use Treatment: Yes (12/2016 [facility] - Substances Abused Heroin Route: Inhalation Frequency: Daily Amount used: 2 bags Age of first use: 23 Date of Last Use: 01/28/17 Cocaine Route: Inhalation Frequency: 1-3 times last 30 days Amount used: $20-25 Age of first use: 23 Date of Last Use: 01/27/17 Marijuana/Hashish Route: Smoking Frequency: 1-3 times last 30 days Amount used: 1 joint Age of first use: 23 Date of Last Use: 01/27/17 Family Disease History - Family Disease History Family Disease History: [place]: Mother (), Sister, Other: Father (no contact ), Mother, Brother (ADDICTED TO DRUGS) Admission Physical Exam BHS - Vital Signs Vital Signs: Vital Signs - 24 hr 01/30/17 11:21 Temperature 97.4 F L Pulse Rate 62 Respiratory 16 Rate Blood Pressure 121/68 - Physical General Appearance: Yes: Appropriately Dressed, Mild Distress, Tremorous, Irritable, Sweating, Anxious HEENTM: Yes: Hearing grossly Normal, Normal ENT Inspection, Normocephalic, Normal Voice Respiratory: Yes: Chest Non-Tender, Lungs Clear, Normal Breath Sounds, No Respiratory Distress, No Accessory Muscle Use Neck: Yes: Supple, Trachea in good position Breast: Yes: Breasts Symetrical Cardiology: Yes: Regular Rhythm, Regular Rate, S1, S2 Abdominal: Yes: Non Tender, Flat Genitourinary: Yes: Within Normal Limits Back: Yes: Normal Inspection Musculoskeletal: Yes: full range of Motion, Gait Steady Extremities: Yes: Normal Inspection, Normal Range of Motion, Non-Tender, Tremors Neurological: Yes: Fully Oriented, Alert, Motor Strength 5/5, Normal Response, Depressed Affect Integumentary: Yes: Warm Lymphatic: Yes: Within Normal Limits - Diagnostic (1) Opioid dependence with withdrawal Current Visit: Yes Status: Acute Comment: . (2) Anxiety Current Visit: Yes Status: Suspected (3) Hepatitis C Current Visit: Yes Status: Resolved Qualifiers: Viral hepatitis chronicity: unspecified Hepatic coma status: without hepatic coma Qualified Code(s): B19.20 - Unspecified viral hepatitis C without hepatic coma (4) Nicotine dependence Current Visit: Yes Status: Acute Qualifiers: Nicotine product type: cigarettes Substance use status: in withdrawal Qualified Code(s): F17.213 - Nicotine dependence, cigarettes, with withdrawal Comment: . (5) Positive PPD Current Visit: Yes Status: Resolved Cleared for Admission [facility] - Detox or Rehab [facility] Level of Care: Medically Managed Detox Regimen/Protocol: Methadone [facility] Breath Alcohol Content Breath Alcohol Content: 0 Urine Drug Screen - Results Drug Screen Negative: No Urine Drug Screen Results: THC-Marijuana, TRAVIS-Cocaine, OPI-Opiates, BZO- Benzodiazepines
[2017-01-30] MEDS ORDERED: NICOTINE POLACRILEX 4 MG GUM BUC PRN (14:07)
[2017-01-30] MEDS ORDERED: MENTHOL/PHENOL 1 EACH UD MM PRN (14:07)
[2017-01-30] MEDS ORDERED: MAG HYDROX/AL HYDROX/SIMETH 30 ML UNIT-DOSE CUP PO PRN (14:07)
[2017-01-30] MEDS ORDERED: MAGNESIUM HYDROX 2400MG/30ML ORAL SUSPENSION 30 ML CUP PO PRN (14:07)
[2017-01-30] MEDS ORDERED: LOPERAMIDE HCL 2 MG CAPSULE PO PRN (14:07)
[2017-01-30] MEDS ORDERED: P-EPHED 60MG/TRIPROLIDI 2.5MG TABLET PO PRN (14:07)
[2017-01-30] MEDS ORDERED: MAGNESIUM CITRATE 300 ML BOTTLE PO PRN (14:07)
[2017-01-30] MEDS ORDERED: IBUPROFEN 400 MG TABLET (FP) PO PRN (14:07)
[2017-01-30] MEDS ORDERED: ACETAMINOPHEN 325 MG TABLET (FP) PO PRN (14:07)
[2017-01-30] MEDS ORDERED: guaiFENesin/D-METHORPHAN HB 10 ML UNIT-DOSE CUPS PO PRN (14:07)
[2017-01-30] MEDS ORDERED: METHADONE HCL 10 MG TABLET (FOR DETOX USE ONLY) PO ONE ×2 (14:29→23:00)
[2017-01-30] MEDS: diazePAM 5 MG TABLET PO PRN ×2 (15:16→22:38)
--- NOTE | 2017-01-30 15:22 | EKG ---
Test Reason : Blood Pressure : / mmHG Vent. Rate : 060 BPM Atrial Rate : 060 BPM P-R Int : 214 ms QRS Dur : 082 ms QT Int : 416 ms P-R-T Axes : 070 078 060 degrees QTc Int : 416 ms SINUS RHYTHM WITH 1ST DEGREE A-V BLOCK OTHERWISE NORMAL ECG WHEN COMPARED WITH ECG OF 10-JAN-2017 19:15, NO SIGNIFICANT CHANGE WAS FOUND Confirmed by MD JALEN, NINO ([id number]) on 01/30/2017 3:22:15 PM Referred By: Confirmed By:NINO RAO MD
[2017-01-30 17:11] LABS: URINE APPEARANCE CLEAR; URINE BILIRUBIN NEGATIVE (NEGATIVE); URINE BLOOD NEGATIVE (NEGATIVE); URINE COLOR YELLOW; URINE GLUCOSE (UA) NEGATIVE (NEGATIVE); URINE KETONE NEGATIVE (NEGATIVE); URINE LEUK ESTERASE NEGATIVE (NEGATIVE); URINE NITRITE NEGATIVE (NEGATIVE); URINE PROTEIN NEGATIVE (NEGATIVE); URINE UROBILINOGEN NEGATIVE mg/dL (0.2-1.0)
[2017-01-30 17:13] LABS: MCH 31.7 pg (25.7-33.7); MCHC 34.2 g/dl (32.0-35.9); MEAN CELL VOLUME 92.7 fl (80-96); MEAN PLT VOLUME 9.3 fl (7.5-11.1); PLATELET COUNT 198 K/MM3 (134-434); RDW 13.1 % (11.9-15.9); WHITE BLOOD COUNT 7.9 K/mm3 (4.0-10.0)
[2017-01-30 17:45] LABS: ANION GAP 7 (8-16); BILIRUBIN,TOTAL 0.3 mg/dL (0.2-1.0); CALCIUM 9.3 mg/dL (8.5-10.1); CO2 31 mmol/L (21-32); CREATININE 1.2 mg/dL (0.7-1.3); GLUCOSE,RANDOM 103 mg/dL (74-106); SGOT/AST 16 U/L (15-37); SGPT/ALT 19 U/L (12-78); TOT PROT 7.5 g/dl (6.4-8.2)
[2017-01-30 17:46] LABS: ALK PHOS 45 U/L (45-117)
[2017-01-30 20:40] LABS: URINE LEUK ESTERASE NEGATIVE (NEGATIVE)
[2017-01-30] MEDS: THIAMINE HCL 100 MG TABLET (FP) PO SCH (22:38)
[2017-01-31] MEDS: diazePAM 5 MG TABLET PO PRN ×3 (06:25→22:51)
--- NOTE | 2017-01-31 07:46 | CONSULT ---
[facility] Psychiatric Consult - Data Date of interview: 01/31/17 Admission source: [facility] Identifying data: This is 56 years old male with no p[sychiatric hospitalization history intoxicated with: Opioids, Cannabis, Cocaine and Benzodiazepins, PCP abuse history as well as per computer Substance Abuse History: - Smoking Cessation. Smoking history: Current every day smoker. Have you smoked in the past 12 months: Yes. Aproximately how many cigarettes per day: 12. Cigars Per Day: 0. Hx Chewing Tobacco Use: No. Initiated information on smoking cessation: Yes. 'Breaking Loose' booklet given : 01/30/17. - Substance & Tx. History. Hx Alcohol Use: No. Hx Substance Use: Yes. Substance Use Type: Cocaine, Marijuana, Opiates. Hx Substance Use Treatment: Yes (12/2016 [facility]). - Substances Abused. Heroin. Route: Inhalation. Frequency: Daily. Amount used: 2 bags. Age of first use: 23. Date of Last Use: 01/28/17. Cocaine. Route: Inhalation. Frequency: 1-3 times last 30 days. Amount used: $20-25. Age of first use: 23. Date of Last Use: 01/27/17. Marijuana/Hashish. Route: Smoking. Frequency: 1-3 times last 30 days. Amount used: 1 joint. Age of first use: 23. Date of Last Use: 01/27/17 Medical History: Hep C+, PPD + history Psychiatric History: Patient reports history of anxiety and insomnioa, reports taking prior to admission: Seroquel 100mg po qhs. As per chart patient carries MDD, denie ssuicidal history Physical/Sexual Abuse/Trauma History: Denies Additional Comment: Seroquel 100mg po qhs Mental Status Exam - Mental Status Exam Alert and Oriented to: Person Cognitive Function: Fair Patient Appearance: Unkempt Mood: Sad Affect: Flat Patient Behavior: Sedated Speech Pattern: Delayed Voice Loudness: Mildly Soft/Quiet Thought Process: Circumstantial Thought Disorder: Being Controlled Hallucinations: Denies Suicidal Ideation: Denies Homicidal Ideation: Denies Insight/Judgement: Fair Sleep: Difficulty falling asleep Appetite: Fair Muscle strength/Tone: Mild Hypotonicity Gait/Station: Shuffling Additional Comments: Seroquel 100mg po qhs Psychiatric Findings - Problem List ([place] 1, 2,3) (1) Nicotine dependence Current Visit: Yes Status: Acute Qualifiers: Nicotine product type: cigarettes Substance use status: in withdrawal Qualified Code(s): F17.213 - Nicotine dependence, cigarettes, with withdrawal Comment: . (2) Opioid dependence with withdrawal Current Visit: Yes Status: Acute Comment: . (3) Anxiety Current Visit: Yes Status: Suspected (4) Cannabis dependence Current Visit: No Status: Acute (5) Drug-induced mood disorder Current Visit: No Status: Acute Comment: . (6) MDD (major depressive disorder), recurrent, severe, with psychosis Current Visit: No Status: Acute (7) PCP abuse Current Visit: No Status: Acute Comment: . (8) Cocaine dependence Current Visit: No Status: Chronic Qualifiers: Substance use status: uncomplicated Qualified Code(s): F14.20 - Cocaine dependence, uncomplicated Comment: . - Initial Treatment Plan Initial Treatment Plan: Seroquel 100mg po qhs
[2017-01-31] MEDS ORDERED: METHADONE HCL 10 MG TABLET (FOR DETOX USE ONLY) PO ONE (10:00)
[2017-01-31] MEDS: PRENATAL VITAMINS W/ FOLIC ACID TABLET (FP) PO SCH (10:53)
[2017-01-31] MEDS: NICOTINE 21 MG/24 HOURS TOPICAL PATCH TD SCH (10:54)
--- NOTE | 2017-01-31 11:37 | PN ---
BHS COWS - Scale Resting Pulse: 0= [place] 80 or Below Sweatin= Chills/Flushing Restless Observation: 1= Difficult to Sit Still Pupil Size: 1= Pupils >than Normal Bone or Joint Aches: 1= Mild Discomfort Runny Nose/ Eye Tearin= Nasal Congestion GI Upset > 30mins: 1= Stomach Cramp Tremor Observation of Outstretched Hands: 1= Tremor [place], Not Seen Yawning Observation: 0= None Anxiety or Irritability: 1=Feels Anxious/Irritable Goose Flesh Skin: 0=Smooth Skin COWS Score: 8 BHS Progress Note (SOAP) Subjective: interrupted sleep, sweats, otherwise feeling good Objective: 01/31/17 11:35 Vital Signs Temperature 97.7 F 01/31/17 09:51 Pulse Rate 57 L 01/31/17 09:51 Respiratory Rate 18 01/31/17 09:51 Blood Pressure 114/66 01/31/17 09:51 O2 Sat by Pulse Oximetry (%) Laboratory Tests 01/30/17 01/30/17 01/30/17 15:00 15:00 15:40 WBC 7.9 RBC 4.31 Hgb 13.6 Hct 39.9 MCV 92.7 MCH 31.7 MCHC 34.2 RDW 13.1 Plt Count 198 D MPV 9.3 Sodium 141 Potassium 4.2 Chloride 103 Carbon Dioxide 31 Anion Gap 7 L BUN 17 Creatinine 1.2 D Creat Clearance w eGFR > 60 Random Glucose 103 D Calcium 9.3 Total Bilirubin 0.3 AST 16 ALT 19 Alkaline Phosphatase 45 Total Protein 7.5 Albumin 4.0 D Urine Color Yellow Urine Appearance Clear Urine pH 5.0 D Ur Specific [place] 1.027 Urine Protein Negative Urine Glucose (UA) Negative Urine Ketones Negative Urine Blood Negative Urine Nitrite Negative Urine Bilirubin Negative Urine Urobilinogen Negative Ur Leukocyte Esterase Negative pt aox3 lying in bed in nad. Assessment: 01/31/17 11:36 withdrawal sx;s Plan: cont. detox increase fluids
[2017-01-31] MEDS: THIAMINE HCL 100 MG TABLET (FP) PO SCH (22:51)
[2017-01-31] MEDS: QUEtiapine FUMARATE 100 MG TABLET (FP) PO SCH (22:51)
--- NOTE | 2017-02-01 09:56 | PN ---
S COWS - Scale Resting Pulse: 0= [place] 80 or Below Sweatin= Chills/Flushing Restless Observation: 1= Difficult to Sit Still Pupil Size: 1= Pupils >than Normal Bone or Joint Aches: 1= Mild Discomfort Runny Nose/ Eye Tearin= Nasal Congestion GI Upset > 30mins: 2= Nausea/Diarrhea Tremor Observation of Outstretched Hands: 1= Tremor [place], Not Seen Yawning Observation: 1= 1-2x During Session Anxiety or Irritability: 2=Irritable/Anxious Goose Flesh Skin: 3=Piloerection COWS Score: 14 S Progress Note (SOAP) Subjective: [place], sweats, interrupted sleep, anxiety, tremors Objective: 02/01/17 09:55 Vital Signs - 24 hr 01/31/17 01/31/17 01/31/17 13:38 17:43 22:10 Temperature 98.1 F 98.1 F 98.4 F Pulse Rate 61 58 L 72 Respiratory 18 18 18 Rate Blood Pressure 120/66 129/67 155/81 02/01/17 02/01/17 02/01/17 00:30 03:30 06:26 Temperature 97.5 F L Pulse Rate 66 Respiratory 18 18 18 Rate Blood Pressure 141/72 Laboratory Tests 01/30/17 01/30/17 01/30/17 15:00 15:00 15:00 WBC 7.9 RBC 4.31 Hgb 13.6 Hct 39.9 MCV 92.7 MCH 31.7 MCHC 34.2 RDW 13.1 Plt Count 198 D MPV 9.3 Sodium 141 Potassium 4.2 Chloride 103 Carbon Dioxide 31 Anion Gap 7 L BUN 17 Creatinine 1.2 D Creat Clearance w eGFR > 60 Random Glucose 103 D Calcium 9.3 Total Bilirubin 0.3 AST 16 ALT 19 Alkaline Phosphatase 45 Total Protein 7.5 Albumin 4.0 D Urine Color Urine Appearance Urine pH Ur Specific [place] Urine Protein Urine Glucose (UA) Urine Ketones Urine Blood Urine Nitrite Urine Bilirubin Urine Urobilinogen Ur Leukocyte Esterase RPR Titer Nonreactive 01/30/17 15:40 WBC RBC Hgb Hct MCV MCH MCHC RDW Plt Count MPV Sodium Potassium Chloride Carbon Dioxide Anion Gap BUN Creatinine Creat Clearance w eGFR Random Glucose Calcium Total Bilirubin AST ALT Alkaline Phosphatase Total Protein Albumin Urine Color Yellow Urine Appearance Clear Urine pH 5.0 D Ur Specific [place] 1.027 Urine Protein Negative Urine Glucose (UA) Negative Urine Ketones Negative Urine Blood Negative Urine Nitrite Negative Urine Bilirubin Negative Urine Urobilinogen Negative Ur Leukocyte Esterase Negative RPR Titer Assessment: 02/01/17 09:55 withramos sx - cont detox, dehydation - fluids, encourage ambulation
[2017-02-01] MEDS ORDERED: METHADONE HCL 5 MG TABLET (FOR DETOX USE ONLY) PO ONE (10:00)
[2017-02-01] MEDS: NICOTINE 21 MG/24 HOURS TOPICAL PATCH TD SCH (10:43)
[2017-02-01] MEDS: diazePAM 5 MG TABLET PO PRN (10:43)
[2017-02-01] MEDS: PRENATAL VITAMINS W/ FOLIC ACID TABLET (FP) PO SCH (10:44)
[2017-02-01] MEDS: THIAMINE HCL 100 MG TABLET (FP) PO SCH (22:36)
[2017-02-01] MEDS: QUEtiapine FUMARATE 100 MG TABLET (FP) PO SCH (22:37)
[2017-02-02] MEDS ORDERED: METHADONE HCL 5 MG TABLET (FOR DETOX USE ONLY) PO ONE (10:00)
[2017-02-02] MEDS: PRENATAL VITAMINS W/ FOLIC ACID TABLET (FP) PO SCH (10:21)
[2017-02-02] MEDS: NICOTINE 21 MG/24 HOURS TOPICAL PATCH TD SCH (10:22)
--- NOTE | 2017-02-02 11:12 | PN ---
BHS Progress Note (SOAP) Subjective: alert,irritable,anxious,interrupted sleep,pain in the body and back,tremor Objective: 02/02/17 11:10 Vital Signs Temperature 96.4 F L 02/02/17 10:07 Pulse Rate 67 02/02/17 10:07 Respiratory Rate 18 02/02/17 10:07 Blood Pressure 122/58 02/02/17 10:07 O2 Sat by Pulse Oximetry (%) Assessment: 02/02/17 11:12 withdrawal symptom Plan: continue detox
[2017-02-02] MEDS: QUEtiapine FUMARATE 100 MG TABLET (FP) PO SCH (22:28)
[2017-02-02] MEDS: THIAMINE HCL 100 MG TABLET (FP) PO SCH (22:28)
[2017-02-03] MEDS ORDERED: METHADONE HCL 10 MG TABLET (FOR DETOX USE ONLY) PO ONE (10:00)
[2017-02-03] MEDS: NICOTINE 21 MG/24 HOURS TOPICAL PATCH TD SCH (10:56)
[2017-02-03] MEDS: PRENATAL VITAMINS W/ FOLIC ACID TABLET (FP) PO SCH (10:56)
--- NOTE | 2017-02-03 12:21 | PN ---
S Progress Note (SOAP) Subjective: alert,interrupted sleep,irritable Objective: 02/03/17 12:20 Vital Signs Temperature 98.2 F 02/03/17 10:00 Pulse Rate 81 02/03/17 10:00 Respiratory Rate 18 02/03/17 10:00 Blood Pressure 135/71 02/03/17 10:00 O2 Sat by Pulse Oximetry (%) Assessment: 02/03/17 12:20 withdrawal symptom Plan: continue detox,discharge in am
[2017-02-03] MEDS: THIAMINE HCL 100 MG TABLET (FP) PO SCH (22:23)
[2017-02-03] MEDS: QUEtiapine FUMARATE 100 MG TABLET (FP) PO SCH (22:24)
[2017-02-04] MEDS ORDERED: METHADONE HCL 5 MG TABLET (FOR DETOX USE ONLY) PO ONE (06:00)
[2017-02-04 11:33] VITALS: BP 137/73; PULSE 82; TEMP 97.7
--- NOTE | 2017-02-04 12:13 | DS ---
[facility] Detox Discharge Summary Admission Date: 01/30/17 Discharge Date: 02/04/17 - History Pertinent Past History: Opioid dependence with uncomplicated withdrawals - Physical Exam Results Vital Signs: Vital Signs Temperature 97.7 F 02/04/17 10:00 Pulse Rate 82 02/04/17 10:00 Respiratory Rate 20 02/04/17 10:00 Blood Pressure 137/73 02/04/17 10:00 O2 Sat by Pulse Oximetry (%) Pertinent Admission Physical Exam Findings: withdrawals sx Laboratory Last Values WBC 7.9 K/mm3 (4.0-10.0) 01/30/17 15:00 RBC 4.31 M/mm3 (4.00-5.60) 01/30/17 15:00 Hgb 13.6 GM/dL (11.7-16.9) 01/30/17 15:00 Hct 39.9 % (35.4-49) 01/30/17 15:00 MCV 92.7 fl (80-96) 01/30/17 15:00 MCH 31.7 pg (25.7-33.7) 01/30/17 15:00 MCHC 34.2 g/dl (32.0-35.9) 01/30/17 15:00 RDW 13.1 % (11.9-15.9) 01/30/17 15:00 Plt Count 198 K/MM3 (134-434) D 01/30/17 15:00 MPV 9.3 fl (7.5-11.1) 01/30/17 15:00 Sodium 141 mmol/L (136-145) 01/30/17 15:00 Potassium 4.2 mmol/L (3.5-5.1) 01/30/17 15:00 Chloride 103 mmol/L (98-107) 01/30/17 15:00 Carbon Dioxide 31 mmol/L (21-32) 01/30/17 15:00 Anion Gap 7 (8-16) L 01/30/17 15:00 BUN 17 mg/dL (7-18) 01/30/17 15:00 Creatinine 1.2 mg/dL (0.7-1.3) D 01/30/17 15:00 Creat Clearance w eGFR > 60 (>60) 01/30/17 15:00 Random Glucose 103 mg/dL (74-106) D 01/30/17 15:00 Calcium 9.3 mg/dL (8.5-10.1) 01/30/17 15:00 Total Bilirubin 0.3 mg/dL (0.2-1.0) 01/30/17 15:00 AST 16 U/L (15-37) 01/30/17 15:00 ALT 19 U/L (12-78) 01/30/17 15:00 Alkaline Phosphatase 45 U/L (45-117) 01/30/17 15:00 Total Protein 7.5 g/dl (6.4-8.2) 01/30/17 15:00 Albumin 4.0 g/dl (3.4-5.0) D 01/30/17 15:00 Urine Color Yellow 01/30/17 15:40 Urine Appearance Clear 01/30/17 15:40 Urine pH 5.0 (5.0-8.0) D 01/30/17 15:40 Ur Specific [place] 1.027 (1.001-1.035) 01/30/17 15:40 Urine Protein Negative (NEGATIVE) 01/30/17 15:40 Urine Glucose (UA) Negative (NEGATIVE) 01/30/17 15:40 Urine Ketones Negative (NEGATIVE) 01/30/17 15:40 Urine Blood Negative (NEGATIVE) 01/30/17 15:40 Urine Nitrite Negative (NEGATIVE) 01/30/17 15:40 Urine Bilirubin Negative (NEGATIVE) 01/30/17 15:40 Urine Urobilinogen Negative mg/dL (0.2-1.0) 01/30/17 15:40 Ur Leukocyte Esterase Negative (NEGATIVE) 01/30/17 15:40 RPR Titer Nonreactive (NONREACTIVE) 01/30/17 15:00 Labs noted - Treatment Hospital Course: Detox Protocol Followed, Detoxed Safely, Responded well, Discharged Condition Good, Rehab Referral Accepted - Medication Discharge Medications: Ambulatory Orders Quetiapine Fumarate [Seroquel] 100 mg PO HS #30 tablet 01/31/17 - AMA Did Patient Leave Against Medical Advice: No
== END 2017-02-04 09:45 | disposition home or self-care (01) | DRG 773 ==
LOC: YASAS 09:12 → Y6N 14:21
PROVIDERS: ADMIT Internal Medicine; ATTEND Internal Medicine
PROC: HZ2ZZZZ Detoxification Services for Substance Abuse Treatment (ICD-10-PCS; principal; 2017-01-30)
DX: F11.23 Opioid dependence with withdrawal (principal); F14.20 Cocaine dependence, uncomplicated; F12.20 Cannabis dependence, uncomplicated; F17.213 Nicotine dependence, cigarettes, with withdrawal; F16.10 Hallucinogen abuse, uncomplicated; F19.24 Other psychoactive substance dependence with psychoactive substance-induced mood disorder; F33.3 Major depressive disorder, recurrent, severe with psychotic symptoms; F41.9 Anxiety disorder, unspecified; B18.2 Chronic viral hepatitis C; R76.11 Nonspecific reaction to tuberculin skin test without active tuberculosis
CPT/HCPCS: 36415; 80053; 81003; 85027; 86593; 93005; 93010

== ENCOUNTER 2017-03-04 08:40 | Inpatient (IN) | payer OTHER ==
--- NOTE | 2017-03-04 09:49 | HP ---
COWS - Scale Resting Pulse: 0= [place] 80 or Below Sweatin=Flushed/Facial Moisture Restless Observation: 3= Extraneous Movement Pupil Size: 2= Moderately Dilated Bone or Joint Aches: 2= Severe Diffuse Aches Runny Nose/ Eye Tearin= Runny Nose/Eyes GI Upset > 30mins: 3= Vomiting/Diarrhea Tremor Observation: 2= Slight Tremor Visible Yawning Observation: 2= >3x During Session Anxiety or Irritability: 2=Irritable/Anxious Goose Flesh Skin: 0=Smooth Skin COWS Score: 20 CIWA Score - CIWA Score Nausea/Vomitin Muscle Tremors: 3 Anxiety: 3 Agitation: 3 Paroxysmal Sweats: 2 Orientation: 0-Oriented Tacttile Disturbances: 2-Mild Itch/Numbness/Burn Auditory Disturbances: 2-Mild Harshness/Frighten Visual Disturbances: 1-Very Mild Sensitivity Headache: 2-Mild CIWA-Ar Total Score: 21 Admission ROS BHS - HPI Chief Complaint: i need help to stop using heroin,cocaine and marijuana Allergies/Adverse Reactions: Allergies Allergy/AdvReac Type Severity Reaction Status Date / Time No Known Allergies Allergy Verified 01/30/17 12:10 History of Present Illness: this 56 years old male with heroin,cocaine and mearijuana dependence,seeking detox,withdrawal symptom,last detox 01/30/17 to 02/04/17 anxiety and depression,insomnia nicotine dependence no significant period of sobriety - Ebola screening Have you traveled outside of the country in the last 21 days: No Have you been sick,other than usual withdrawal symptoms: No - Review of Systems Constitutional: Chills, Loss of Appetite, Malaise, Night Sweats, Changes in sleep, Weakness, Unintentional Wgt. Loss EENT: reports: Tearing, Nose Congestion Respiratory: reports: No Symptoms reported Cardiac: reports: No Symptoms Reported GI: reports: Diarrhea, Nausea, Vomiting, Abdominal cramping : reports: No Symptoms Reported Musculoskeletal: reports: Back Pain, Joint Pain, Muscle Pain, Joint Stiffness Integumentary: reports: Dryness Neuro: reports: Headache, Tremors Endocrine: reports: No Symptoms Reported Hematology: reports: No Symptoms Reported Psychiatric: reports: Anxious (insomnia), Depressed Patient History - Patient Medical History Hx Anemia: No Hx Asthma: No Hx Chronic Obstructive Pulmonary Disease (COPD): No Hx Cancer: No Hx Cardiac Disorders: No Hx Congestive Heart Failure: No Hx Hypertension: No Hx Hypercholesterolemia: No Hx Pacemaker: No HX Cerebrovascular Accident: No Hx Seizures: No Hx Dementia: No Hx Diabetes: No Hx Gastrointestinal Disorders: No Hx Liver Disease: Yes (hep C) Hx Genitourinary Disorders: No Hx Sexually Transmitted Disorders: No Hx Renal Disease (ESRD): No Hx Thyroid Disease: No Hx Human Immunodeficiency Virus (HIV): No (NEGATIVE HX 2016) Hx Hepatitis C: Yes (TREATED 2016) Hx Depression: Yes (anxiety) Hx Suicide Attempt: No Hx Bipolar Disorder: No Hx Schizophrenia: No Other Medical History: insomnia,no suicidal,no homicidal - Patient Surgical History Past Surgical History: No Hx Neurologic Surgery: No Hx Cataract Extraction: No Hx Cardiac Surgery: No Hx Lung Surgery: No Hx Breast Surgery: No Hx Breast Biopsy: No Hx Abdominal Surgery: No Hx Appendectomy: No Hx Cholecystectomy: No Hx Genitourinary Surgery: No Hx Section: No Hx Orthopedic Surgery: No Anesthesia Reaction: No - PPD History Documented Results: Positive w/proof Date: 01/11/17 Results: CXR negative PPD to be Administered?: No - Smoking Cessation Smoking history: Current every day smoker Have you smoked in the past 12 months: Yes Aproximately how many cigarettes per day: 12 Cigars Per Day: 0 Hx Chewing Tobacco Use: No Initiated information on smoking cessation: Yes 'Breaking Loose' booklet given: 03/04/17 - Substance & Tx. History Hx Alcohol Use: No Hx Substance Use: Yes Substance Use Type: Alcohol, Heroin, Marijuana Hx Substance Use Treatment: Yes ([facility] 01/30/17 to 02/04/17) - Substances Abused Heroin Route: Inhalation Frequency: Daily Amount used: 2 bags Age of first use: 24 Date of Last Use: 03/03/17 Cocaine Route: Inhalation Frequency: 1-2 times per week Amount used: 40$ Age of first use: 19 Date of Last Use: 03/03/17 Marijuana/Hashish Route: Smoking Frequency: 1-2 times per week Amount used: 10$ Age of first use: 19 Date of Last Use: 03/02/17 Family Disease History - Family Disease History Family Disease History: [place]: Mother (), Sister, Other: Father (no contact ), Mother, Brother (ADDICTED TO DRUGS) Admission Physical Exam BHS - Vital Signs Vital Signs: Vital Signs - 24 hr 01/14/18 09:06 Temperature 98.6 F Pulse Rate 50 L Respiratory 19 Rate Blood Pressure 139/70 - Physical General Appearance: Yes: Moderate Distress, Tremorous, Irritable, Sweating, Anxious HEENTM: Yes: Within Normal Limits, ELOINA, Pharynx Normal Respiratory: Yes: Within Normal Limits, Lungs Clear, Normal Breath Sounds Neck: Yes: Within Normal Limits, Supple, Trachea in good position Breast: Yes: Within Normal Limits Cardiology: Yes: Within Normal Limits, Regular Rhythm, Regular Rate, S1, S2 Abdominal: Yes: Within Normal Limits, Normal Bowel Sounds, Non Tender, Flat, Soft Genitourinary: Yes: Within Normal Limits Back: Yes: Muscle Spasm Musculoskeletal: Yes: full range of Motion, Back pain, Muscle Pain Extremities: Yes: Within Normal Limits, Normal Range of Motion, Tremors Neurological: Yes: plant changer II-XII NML intact, Fully Oriented, Alert, Motor Strength 5/5 Lymphatic: Yes: Within Normal Limits - Diagnostic (1) Cannabis dependence Current Visit: No Status: Acute (2) Cocaine dependence Current Visit: No Status: Acute Qualifiers: Substance use status: uncomplicated Qualified Code(s): F14.20 - Cocaine dependence, uncomplicated Comment: . (3) Insomnia Current Visit: No Status: Acute Qualifiers: Insomnia type: unspecified Qualified Code(s): G47.00 - Insomnia, unspecified Comment: . (4) Opioid dependence with withdrawal Current Visit: No Status: Acute Comment: . (5) Depression Current Visit: No Status: Chronic (6) Anxiety Current Visit: No Status: Suspected (7) Hepatitis C Current Visit: No Status: Resolved Qualifiers: Viral hepatitis chronicity: chronic Hepatic coma status: without hepatic coma Qualified Code(s): B18.2 - Chronic viral hepatitis C (8) Positive PPD Current Visit: No Status: Resolved (9) Weight loss Current Visit: Yes Status: Acute Cleared for Admission S - Detox or Rehab [facility] Level of Care: Medically Managed Detox Regimen/Protocol: Librium S Breath Alcohol Content Breath Alcohol Content: 0 Urine Drug Screen - Results Drug Screen Negative: No Urine Drug Screen Results: THC-Marijuana, TRAVIS-Cocaine, OPI-Opiates
[2017-03-04 09:56] VITALS: BMI 22.8
[2017-03-04] MEDS ORDERED: P-EPHED 60MG/TRIPROLIDI 2.5MG TABLET PO PRN (10:01)
[2017-03-04] MEDS ORDERED: IBUPROFEN 400 MG TABLET (FP) PO PRN (10:01)
[2017-03-04] MEDS ORDERED: ACETAMINOPHEN 325 MG TABLET (FP) PO PRN (10:01)
[2017-03-04] MEDS ORDERED: MAGNESIUM HYDROX 2400MG/30ML ORAL SUSPENSION 30 ML CUP PO PRN (10:01)
[2017-03-04] MEDS ORDERED: NICOTINE POLACRILEX 2 MG GUM BC PRN (10:01)
[2017-03-04] MEDS ORDERED: MAGNESIUM CITRATE 300 ML BOTTLE PO PRN (10:01)
[2017-03-04] MEDS ORDERED: guaiFENesin/D-METHORPHAN HB 10 ML UNIT-DOSE CUPS PO PRN (10:01)
[2017-03-04] MEDS ORDERED: MAG HYDROX/AL HYDROX/SIMETH 30 ML UNIT-DOSE CUP PO PRN (10:01)
[2017-03-04] MEDS ORDERED: METHADONE HCL 10 MG TABLET (FOR DETOX USE ONLY) PO ONE ×3 (10:01→23:00)
[2017-03-04] MEDS ORDERED: LOPERAMIDE HCL 2 MG CAPSULE PO PRN (10:01)
[2017-03-04] MEDS ORDERED: MENTHOL/PHENOL 1 EACH UD MM PRN (10:01)
[2017-03-04] MEDS: NICOTINE 21 MG/24 HOURS TOPICAL PATCH TD SCH (13:01)
[2017-03-04 16:34] LABS: URINE APPEARANCE CLEAR; URINE BILIRUBIN NEGATIVE (NEGATIVE); URINE BLOOD NEGATIVE (NEGATIVE); URINE COLOR YELLOW; URINE GLUCOSE (UA) NEGATIVE (NEGATIVE); URINE KETONE NEGATIVE (NEGATIVE); URINE LEUK ESTERASE NEGATIVE (NEGATIVE); URINE NITRITE NEGATIVE (NEGATIVE); URINE PROTEIN NEGATIVE (NEGATIVE); URINE UROBILINOGEN NEGATIVE mg/dL (0.2-1.0)
[2017-03-04] MEDS: THIAMINE HCL 100 MG TABLET (FP) PO SCH (22:46)
[2017-03-04] MEDS: diazePAM 5 MG TABLET PO PRN (22:46)
[2017-03-05 09:57] LABS: HEMATOCRIT 37.5 % (35.4-49); HEMOGLOBIN 12.5 GM/dL (11.7-16.9); MCHC 33.3 g/dl (32.0-35.9); MEAN CELL VOLUME 92.9 fl (80-96); MEAN PLT VOLUME 8.6 fl (7.5-11.1); PLATELET COUNT 179 K/MM3 (134-434); RBC 4.03 M/mm3 (4.00-5.60); RDW 13.5 % (11.9-15.9); WHITE BLOOD COUNT 5.6 K/mm3 (4.0-10.0)
[2017-03-05] MEDS ORDERED: METHADONE HCL 10 MG TABLET (FOR DETOX USE ONLY) PO ONE (10:00)
[2017-03-05 10:25] LABS: CHLORIDE 107 mmol/L (98-107); POTASSIUM 3.9 mmol/L (3.5-5.1); SGOT/AST 19 U/L (15-37); SGPT/ALT 26 U/L (12-78); SODIUM 141 mmol/L (136-145)
[2017-03-05 10:29] LABS: ALBUMIN 3.2 g/dl (3.4-5.0); ALK PHOS 20 U/L (45-117); ANION GAP 6 (8-16); BILIRUBIN,TOTAL 0.4 mg/dL (0.2-1.0); BLOOD UREA NITROGEN 13 mg/dL (7-18); CALCIUM 8.5 mg/dL (8.5-10.1); CO2 28 mmol/L (21-32); CREATININE 0.9 mg/dL (0.7-1.3); GLUCOSE,RANDOM 73 mg/dL (74-106); TOT PROT 6.1 g/dl (6.4-8.2)
[2017-03-05] MEDS: PRENATAL VITAMINS W/ FOLIC ACID TABLET (FP) PO SCH (11:31)
[2017-03-05] MEDS: NICOTINE 21 MG/24 HOURS TOPICAL PATCH TD SCH (11:32)
--- NOTE | 2017-03-05 12:39 | PN ---
BHS COWS - Scale Resting Pulse: 0= [place] 80 or Below Sweatin= Chills/Flushing Restless Observation: 3= Extraneous Movement Pupil Size: 1= Pupils >than Normal Bone or Joint Aches: 2= Severe Diffuse Aches Runny Nose/ Eye Tearin= Runny Nose/Eyes GI Upset > 30mins: 2= Nausea/Diarrhea Tremor Observation of Outstretched Hands: 2= Slight Tremor Visible Yawning Observation: 1= 1-2x During Session Anxiety or Irritability: 2=Irritable/Anxious Goose Flesh Skin: 0=Smooth Skin COWS Score: 16 S Progress Note (SOAP) Subjective: ALERT,IRRITABLE,ANXIOUS,INTERRUPTED SLEEP,TREMOR,PAIN IN THE BODY AND BACK Objective: 03/05/17 12:40 Vital Signs Temperature 98 F 03/05/17 11:50 Pulse Rate 58 L 03/05/17 11:50 Respiratory Rate 18 03/05/17 11:50 Blood Pressure 126/69 03/05/17 11:50 O2 Sat by Pulse Oximetry (%) EKG SINUS BRADYCARDIA 57/MIN NO CHEST PAIN,NO SOB,NO DIZZINESS Laboratory Last Values WBC 5.6 K/mm3 (4.0-10.0) 03/05/17 07:30 RBC 4.03 M/mm3 (4.00-5.60) 03/05/17 07:30 Hgb 12.5 GM/dL (11.7-16.9) 03/05/17 07:30 Hct 37.5 % (35.4-49) 03/05/17 07:30 MCV 92.9 fl (80-96) 03/05/17 07:30 MCH 31.0 pg (25.7-33.7) 03/05/17 07:30 MCHC 33.3 g/dl (32.0-35.9) 03/05/17 07:30 RDW 13.5 % (11.9-15.9) 03/05/17 07:30 Plt Count 179 K/MM3 (134-434) 03/05/17 07:30 MPV 8.6 fl (7.5-11.1) 03/05/17 07:30 Sodium 141 mmol/L (136-145) 03/05/17 07:30 Potassium 3.9 mmol/L (3.5-5.1) 03/05/17 07:30 Chloride 107 mmol/L (98-107) 03/05/17 07:30 Carbon Dioxide 28 mmol/L (21-32) 03/05/17 07:30 Anion Gap 6 (8-16) L 03/05/17 07:30 BUN 13 mg/dL (7-18) D 03/05/17 07:30 Creatinine 0.9 mg/dL (0.7-1.3) D 03/05/17 07:30 Creat Clearance w eGFR > 60 (>60) 03/05/17 07:30 Random Glucose 73 mg/dL (74-106) L D 03/05/17 07:30 Calcium 8.5 mg/dL (8.5-10.1) 03/05/17 07:30 Total Bilirubin 0.4 mg/dL (0.2-1.0) D 03/05/17 07:30 AST 19 U/L (15-37) 03/05/17 07:30 ALT 26 U/L (12-78) D 03/05/17 07:30 Alkaline Phosphatase 20 U/L (45-117) L D 03/05/17 07:30 Total Protein 6.1 g/dl (6.4-8.2) L 03/05/17 07:30 Albumin 3.2 g/dl (3.4-5.0) L 03/05/17 07:30 Urine Color Yellow 03/04/17 15:34 Urine Appearance Clear 03/04/17 15:34 Urine pH 5.0 (5.0-8.0) 03/04/17 15:34 Ur Specific [place] 1.027 (1.001-1.035) 03/04/17 15:34 Urine Protein Negative (NEGATIVE) 03/04/17 15:34 Urine Glucose (UA) Negative (NEGATIVE) 03/04/17 15:34 Urine Ketones Negative (NEGATIVE) 03/04/17 15:34 Urine Blood Negative (NEGATIVE) 03/04/17 15:34 Urine Nitrite Negative (NEGATIVE) 03/04/17 15:34 Urine Bilirubin Negative (NEGATIVE) 03/04/17 15:34 Urine Urobilinogen Negative mg/dL (0.2-1.0) 03/04/17 15:34 Ur Leukocyte Esterase Negative (NEGATIVE) 03/04/17 15:34 Assessment: 03/05/17 12:42 WITHDRAWAL SYMPTOM Plan: CONTINUE DETOX
[2017-03-05] MEDS: diazePAM 5 MG TABLET PO PRN ×2 (17:49→22:40)
[2017-03-05] MEDS: THIAMINE HCL 100 MG TABLET (FP) PO SCH (22:40)
[2017-03-06] MEDS ORDERED: METHADONE HCL 5 MG TABLET (FOR DETOX USE ONLY) PO ONE (10:00)
--- NOTE | 2017-03-06 10:57 | EKG ---
Test Reason : Blood Pressure : / mmHG Vent. Rate : 057 BPM Atrial Rate : 057 BPM P-R Int : 150 ms QRS Dur : 090 ms QT Int : 438 ms P-R-T Axes : 045 077 053 degrees QTc Int : 426 ms SINUS BRADYCARDIA NONSPECIFIC ST AND T WAVE ABNORMALITY ABNORMAL ECG WHEN COMPARED WITH ECG OF 30-JAN-2017 15:04, [place] INTERVAL HAS DECREASED Confirmed by MD Dex, Gerson ([id number]) on 03/06/2017 10:56:43 AM Referred By: Confirmed By:Gerson Kowalski MD
[2017-03-06] MEDS: PRENATAL VITAMINS W/ FOLIC ACID TABLET (FP) PO SCH (11:11)
[2017-03-06] MEDS: NICOTINE 21 MG/24 HOURS TOPICAL PATCH TD SCH (11:11)
[2017-03-06] MEDS: diazePAM 5 MG TABLET PO PRN (11:11)
--- NOTE | 2017-03-06 13:38 | PN ---
BHS COWS - Scale Resting Pulse: 0= [place] 80 or Below Sweatin=Flushed/Facial Moisture Restless Observation: 1= Difficult to Sit Still Pupil Size: 0= Normal to Room Light Bone or Joint Aches: 2= Severe Diffuse Aches Runny Nose/ Eye Tearin= None GI Upset > 30mins: 2= Nausea/Diarrhea Tremor Observation of Outstretched Hands: 2= Slight Tremor Visible Yawning Observation: 2= >3x During Session Anxiety or Irritability: 1=Feels Anxious/Irritable Goose Flesh Skin: 0=Smooth Skin COWS Score: 12 BHS Progress Note (SOAP) Subjective: Alert, anxious, interrupted sleep, body aches, chills and diaphoresis, tremors Objective: 03/06/17 13:37 Last Vital Signs Temp Pulse Resp BP Pulse Ox 98 F 59 L 18 141/79 03/06/17 10:25 03/06/17 10:25 03/06/17 10:25 03/06/17 10:25 Laboratory Last Values WBC 5.6 K/mm3 (4.0-10.0) 03/05/17 07:30 RBC 4.03 M/mm3 (4.00-5.60) 03/05/17 07:30 Hgb 12.5 GM/dL (11.7-16.9) 03/05/17 07:30 Hct 37.5 % (35.4-49) 03/05/17 07:30 MCV 92.9 fl (80-96) 03/05/17 07:30 MCH 31.0 pg (25.7-33.7) 03/05/17 07:30 MCHC 33.3 g/dl (32.0-35.9) 03/05/17 07:30 RDW 13.5 % (11.9-15.9) 03/05/17 07:30 Plt Count 179 K/MM3 (134-434) 03/05/17 07:30 MPV 8.6 fl (7.5-11.1) 03/05/17 07:30 Sodium 141 mmol/L (136-145) 03/05/17 07:30 Potassium 3.9 mmol/L (3.5-5.1) 03/05/17 07:30 Chloride 107 mmol/L (98-107) 03/05/17 07:30 Carbon Dioxide 28 mmol/L (21-32) 03/05/17 07:30 Anion Gap 6 (8-16) L 03/05/17 07:30 BUN 13 mg/dL (7-18) D 03/05/17 07:30 Creatinine 0.9 mg/dL (0.7-1.3) D 03/05/17 07:30 Creat Clearance w eGFR > 60 (>60) 03/05/17 07:30 Random Glucose 73 mg/dL (74-106) L D 03/05/17 07:30 Calcium 8.5 mg/dL (8.5-10.1) 03/05/17 07:30 Total Bilirubin 0.4 mg/dL (0.2-1.0) D 03/05/17 07:30 AST 19 U/L (15-37) 03/05/17 07:30 ALT 26 U/L (12-78) D 03/05/17 07:30 Alkaline Phosphatase 20 U/L (45-117) L D 03/05/17 07:30 Total Protein 6.1 g/dl (6.4-8.2) L 03/05/17 07:30 Albumin 3.2 g/dl (3.4-5.0) L 03/05/17 07:30 Urine Color Yellow 03/04/17 15:34 Urine Appearance Clear 03/04/17 15:34 Urine pH 5.0 (5.0-8.0) 03/04/17 15:34 Ur Specific [place] 1.027 (1.001-1.035) 03/04/17 15:34 Urine Protein Negative (NEGATIVE) 03/04/17 15:34 Urine Glucose (UA) Negative (NEGATIVE) 03/04/17 15:34 Urine Ketones Negative (NEGATIVE) 03/04/17 15:34 Urine Blood Negative (NEGATIVE) 03/04/17 15:34 Urine Nitrite Negative (NEGATIVE) 03/04/17 15:34 Urine Bilirubin Negative (NEGATIVE) 03/04/17 15:34 Urine Urobilinogen Negative mg/dL (0.2-1.0) 03/04/17 15:34 Ur Leukocyte Esterase Negative (NEGATIVE) 03/04/17 15:34 RPR Titer Nonreactive (NONREACTIVE) 03/05/17 07:30 Labs noted Assessment: 03/06/17 13:38 withdrawal symptoms Plan: Continue detox increase fluids continue to monitor
[2017-03-06] MEDS: THIAMINE HCL 100 MG TABLET (FP) PO SCH (22:50)
[2017-03-07] MEDS ORDERED: METHADONE HCL 5 MG TABLET (FOR DETOX USE ONLY) PO ONE (10:00)
[2017-03-07] MEDS: PRENATAL VITAMINS W/ FOLIC ACID TABLET (FP) PO SCH (11:13)
[2017-03-07] MEDS: NICOTINE 21 MG/24 HOURS TOPICAL PATCH TD SCH (11:16)
--- NOTE | 2017-03-07 12:08 | PN ---
BHS Progress Note (SOAP) Subjective: interrupted sleep, sweats Objective: 03/07/17 12:07 Vital Signs Temperature 99.1 F 03/07/17 05:00 Pulse Rate 65 03/07/17 05:00 Respiratory Rate 18 03/07/17 05:00 Blood Pressure 128/88 03/07/17 05:00 O2 Sat by Pulse Oximetry (%) Laboratory Tests 03/04/17 03/05/17 03/05/17 15:34 07:30 07:30 WBC 5.6 RBC 4.03 Hgb 12.5 Hct 37.5 MCV 92.9 MCH 31.0 MCHC 33.3 RDW 13.5 Plt Count 179 MPV 8.6 Sodium 141 Potassium 3.9 Chloride 107 Carbon Dioxide 28 Anion Gap 6 L BUN 13 D Creatinine 0.9 D Creat Clearance w eGFR > 60 Random Glucose 73 L D Calcium 8.5 Total Bilirubin 0.4 D AST 19 ALT 26 D Alkaline Phosphatase 20 L D Total Protein 6.1 L Albumin 3.2 L Urine Color Yellow Urine Appearance Clear Urine pH 5.0 Ur Specific [place] 1.027 Urine Protein Negative Urine Glucose (UA) Negative Urine Ketones Negative Urine Blood Negative Urine Nitrite Negative Urine Bilirubin Negative Urine Urobilinogen Negative Ur Leukocyte Esterase Negative RPR Titer 03/05/17 07:30 WBC RBC Hgb Hct MCV MCH MCHC RDW Plt Count MPV Sodium Potassium Chloride Carbon Dioxide Anion Gap BUN Creatinine Creat Clearance w eGFR Random Glucose Calcium Total Bilirubin AST ALT Alkaline Phosphatase Total Protein Albumin Urine Color Urine Appearance Urine pH Ur Specific [place] Urine Protein Urine Glucose (UA) Urine Ketones Urine Blood Urine Nitrite Urine Bilirubin Urine Urobilinogen Ur Leukocyte Esterase RPR Titer Nonreactive pt aox3 in nad ambulating Assessment: 03/07/17 12:07 withdrawal sx's Plan: cont. detox increase fluids
[2017-03-07] MEDS: THIAMINE HCL 100 MG TABLET (FP) PO SCH (22:27)
[2017-03-07] MEDS: hydrOXYzine PAMOATE 25 MG CAPSULE (FP) PO PRN (22:27)
[2017-03-08] MEDS ORDERED: METHADONE HCL 10 MG TABLET (FOR DETOX USE ONLY) PO ONE (10:00)
--- NOTE | 2017-03-08 10:19 | CONSULT ---
[facility] Psychiatric Consult - Data Date of interview: 03/08/17 Admission source: [facility] Identifying data: This is 56 years old male with no psychiatric hospitalization history intoxiocated with: Opioids and Cannabis Substance Abuse History: Smoking history: Current every day smoker. Have you smoked in the past 12 months: Yes. Aproximately how many cigarettes per day: 12. Cigars Per Day: 0. Hx Chewing Tobacco Use: No. Initiated information on smoking cessation: Yes. 'Breaking Loose' booklet given: 03/04/17. - Substance & Tx. History. Hx Alcohol Use: No. Hx Substance Use: Yes. Substance Use Type : Alcohol, Heroin, Marijuana. Hx Substance Use Treatment: Yes ([facility] 01/30/17 to 02/04/17). - Substances Abused. Heroin. Route: Inhalation. Frequency: Daily. Amount used: 2 bags. Age of first use: 24. Date of Last Use: . Cocaine. Route: Inhalation. Frequency: 1-2 times per week. Amount used: 40$. Age of first use: 19. Date of Last Use: 03/03/17. Marijuana/ Hashish. Route: Smoking. Frequency: 1-2 times per week. Amount used: 10$. Age of first use: 19. Date of Last Use: 03/02/17 Medical History: HepC+, PPD history, Weight loss history Psychiatric History: Patient denies past psychiatric history, as per computer there is a hiustory of depression and anxiety, history of takig Seroquel 100mg po qhs Physical/Sexual Abuse/Trauma History: Denies Additional Comment: Seroquel 100mg po qhs Mental Status Exam - Mental Status Exam Alert and Oriented to: Person Cognitive Function: Fair Patient Appearance: Unkempt Mood: Euthymic Affect: Mood Congruent Patient Behavior: Cooperative Speech Pattern: Appropriate Voice Loudness: Normal Thought Process: Goal Oriented Thought Disorder: Being Controlled Hallucinations: Denies Suicidal Ideation: Denies Homicidal Ideation: Denies Insight/Judgement: Fair Sleep: Difficulty falling asleep Appetite: Weight loss Muscle strength/Tone: Normal Gait/Station: Normal Additional Comments: Seroquel 100mg po qhs Psychiatric Findings - Problem List ([place] 1, 2,3) (1) Weight loss Current Visit: Yes Status: Acute (2) Cannabis dependence Current Visit: No Status: Acute (3) Cocaine dependence Current Visit: No Status: Acute Qualifiers: Substance use status: uncomplicated Qualified Code(s): F14.20 - Cocaine dependence, uncomplicated Comment: . (4) Drug-induced mood disorder Current Visit: No Status: Acute Comment: . (5) Opioid dependence with withdrawal Current Visit: No Status: Acute Comment: . (6) PCP abuse Current Visit: No Status: Acute Comment: . (7) Depression Current Visit: No Status: Chronic (8) Nicotine dependence Current Visit: No Status: Chronic Qualifiers: Nicotine product type: cigarettes Substance use status: in withdrawal Qualified Code(s): F17.213 - Nicotine dependence, cigarettes, with withdrawal Comment: . (9) Anxiety Current Visit: No Status: Suspected - Initial Treatment Plan Initial Treatment Plan: Seroquel 100mg po qhs. Patient refusing psychiatric medications
[2017-03-08] MEDS: NICOTINE 21 MG/24 HOURS TOPICAL PATCH TD SCH (10:53)
[2017-03-08] MEDS: PRENATAL VITAMINS W/ FOLIC ACID TABLET (FP) PO SCH (10:53)
--- NOTE | 2017-03-08 11:34 | PN ---
BHS Progress Note (SOAP) Subjective: feeling good little sweats Objective: 03/08/17 11:33 Vital Signs Temperature 98.6 F 03/08/17 10:00 Pulse Rate 63 03/08/17 10:00 Respiratory Rate 18 03/08/17 10:00 Blood Pressure 111/63 03/08/17 10:00 O2 Sat by Pulse Oximetry (%) aaox3 ambulating no acute distress Assessment: 03/08/17 11:34 withdrawal sx Plan: continue detox d/c in am
[2017-03-08] MEDS: THIAMINE HCL 100 MG TABLET (FP) PO SCH (22:19)
[2017-03-08] MEDS: hydrOXYzine PAMOATE 25 MG CAPSULE (FP) PO PRN (22:19)
[2017-03-09] MEDS ORDERED: METHADONE HCL 5 MG TABLET (FOR DETOX USE ONLY) PO ONE (06:00)
[2017-03-09 07:32] VITALS: BP 128/75; PULSE 65; TEMP 97.9
--- NOTE | 2017-03-09 09:03 | DS ---
[facility] Detox Discharge Summary Admission Date: 03/04/17 Discharge Date: 03/09/17 - History Present History: Cannabis Dependence, Cocaine Dependence, Opioid Dependence - Physical Exam Results Vital Signs: Vital Signs Temperature 97.9 F 03/09/17 07:31 Pulse Rate 65 03/09/17 07:31 Respiratory Rate 16 03/09/17 07:31 Blood Pressure 128/75 03/09/17 07:31 O2 Sat by Pulse Oximetry (%) - Medication Discharge Medications: Ambulatory Orders Quetiapine Fumarate [Seroquel] 100 mg PO HS #30 tablet 01/31/17 - Diagnosis (1) Cannabis dependence Current Visit: No Status: Chronic (2) Cocaine dependence Current Visit: No Status: Chronic Qualifiers: Substance use status: uncomplicated Qualified Code(s): F14.20 - Cocaine dependence, uncomplicated (3) Opioid dependence with withdrawal Current Visit: No Status: Chronic (4) Nicotine dependence Current Visit: No Status: Chronic Qualifiers: Nicotine product type: cigarettes Substance use status: in withdrawal Qualified Code(s): F17.213 - Nicotine dependence, cigarettes, with withdrawal (5) Anxiety Current Visit: No Status: Suspected (6) Hepatitis C Current Visit: No Status: Resolved Qualifiers: Viral hepatitis chronicity: chronic Hepatic coma status: without hepatic coma Qualified Code(s): B18.2 - Chronic viral hepatitis C - AMA Did Patient Leave Against Medical Advice: No
[2017-03-09] MEDS: PRENATAL VITAMINS W/ FOLIC ACID TABLET (FP) PO SCH (09:38)
[2017-03-09] MEDS: NICOTINE 21 MG/24 HOURS TOPICAL PATCH TD SCH (09:38)
== END 2017-03-09 09:47 | disposition home or self-care (01) | DRG 773 ==
LOC: YASAS 08:40 → Y6N 11:19
PROVIDERS: ADMIT Internal Medicine; ATTEND Internal Medicine
PROC: HZ2ZZZZ Detoxification Services for Substance Abuse Treatment (ICD-10-PCS; principal; 2017-03-04)
DX: F11.23 Opioid dependence with withdrawal (principal); F14.20 Cocaine dependence, uncomplicated; F12.20 Cannabis dependence, uncomplicated; F17.213 Nicotine dependence, cigarettes, with withdrawal; F19.24 Other psychoactive substance dependence with psychoactive substance-induced mood disorder; F41.8 Other specified anxiety disorders; B18.2 Chronic viral hepatitis C; R76.11 Nonspecific reaction to tuberculin skin test without active tuberculosis; R63.4 Abnormal weight loss; Z68.22 Body mass index [BMI] 22.0-22.9, adult
CPT/HCPCS: 36415; 80053; 81003; 85027; 86593; 93005; 93010

== ENCOUNTER 2017-03-25 16:36 | Inpatient (IN) | payer OTHER ==
[2017-03-25 16:57] VITALS: BMI 21.6
--- NOTE | 2017-03-25 17:11 | HP ---
COWS - Scale Resting Pulse: 1= NE 81-100 Sweatin=Flushed/Facial Moisture Restless Observation: 3= Extraneous Movement Pupil Size: 2= Moderately Dilated Bone or Joint Aches: 2= Severe Diffuse Aches Runny Nose/ Eye Tearin= Runny Nose/Eyes GI Upset > 30mins: 3= Vomiting/Diarrhea Tremor Observation: 2= Slight Tremor Visible Yawning Observation: 2= >3x During Session Anxiety or Irritability: 2=Irritable/Anxious Goose Flesh Skin: 0=Smooth Skin COWS Score: 21 CIWA Score - CIWA Score Nausea/Vomitin Muscle Tremors: 3 Anxiety: 3 Agitation: 3 Paroxysmal Sweats: 2 Orientation: 0-Oriented Tacttile Disturbances: 2-Mild Itch/Numbness/Burn Auditory Disturbances: 2-Mild Harshness/Frighten Visual Disturbances: 2-Mild Sensitivity Headache: 2-Mild CIWA-Ar Total Score: 22 Admission ROS BHS - HPI Chief Complaint: I AMHERE NEED HELP TO STOP USING HEROIN ,COCAINE AND MARIJUANA Allergies/Adverse Reactions: Allergies Allergy/AdvReac Type Severity Reaction Status Date / Time No Known Allergies Allergy Verified 03/25/17 17:42 History of Present Illness: THIS 56 YEARS OLD MALE WITH HEROIN,COCAINE AND MARIJUANA DEPENDENCE,SEEKING DETOX,WITHDRAWAL SYMPTOM,LAST DETOX [facility] 03/04/17 TO 03/09/17 ANXIETY,DEPRESSION,INSONIA HEPATITIS C TREATED WEIGHT LOSS NO SIGNIFICANT PERIOD OF SOBRIETY Exam Limitations: No Limitations - Ebola screening Have you traveled outside of the country in the last 21 days: No (N) Have you had contact with anyone from an Ebola affected area: No Have you been sick,other than usual withdrawal symptoms: No Do you have a fever: No - Review of Systems Constitutional: Chills, Diaphoresis, Loss of Appetite, Malaise, Night Sweats, Changes in sleep, Weakness, Unintentional Wgt. Loss EENT: reports: Tearing, Nose Congestion Respiratory: reports: No Symptoms reported Cardiac: reports: Palpitations GI: reports: Diarrhea, Nausea, Vomiting, Abdominal cramping : reports: No Symptoms Reported Musculoskeletal: reports: Back Pain, Joint Pain, Muscle Pain, Joint Stiffness Integumentary: reports: Dryness Neuro: reports: Headache, Tremors Endocrine: reports: No Symptoms Reported Hematology: reports: No Symptoms Reported Psychiatric: reports: Anxious (INSOMNIA), Depressed Other Systems: Reviewed and Negative Patient History - Patient Medical History Hx Anemia: No Hx Asthma: No Hx Chronic Obstructive Pulmonary Disease (COPD): No Hx Cancer: No Hx Cardiac Disorders: No Hx Congestive Heart Failure: No Hx Hypertension: No Hx Hypercholesterolemia: No Hx Pacemaker: No HX Cerebrovascular Accident: No Hx Seizures: No Hx Dementia: No Hx Diabetes: No Hx Gastrointestinal Disorders: No Hx Liver Disease: Yes (hep C) Hx Genitourinary Disorders: No Hx Sexually Transmitted Disorders: No Hx Renal Disease (ESRD): No Hx Thyroid Disease: No Hx Human Immunodeficiency Virus (HIV): No (NEGATIVE HX 2016) Hx Hepatitis C: Yes (TREATED 2016) Hx Depression: Yes (anxiety) Hx Suicide Attempt: No Hx Bipolar Disorder: No Hx Schizophrenia: No Other Medical History: NO SUICIDAL,NO HOMICIDAL - Patient Surgical History Past Surgical History: No Hx Neurologic Surgery: No Hx Cataract Extraction: No Hx Cardiac Surgery: No Hx Lung Surgery: No Hx Breast Surgery: No Hx Breast Biopsy: No Hx Abdominal Surgery: No Hx Appendectomy: No Hx Cholecystectomy: No Hx Genitourinary Surgery: No Hx Section: No Hx Orthopedic Surgery: No Anesthesia Reaction: No - PPD History Date: 01/11/17 Results: CXR negative - Smoking Cessation Smoking history: Current every day smoker Have you smoked in the past 12 months: Yes Aproximately how many cigarettes per day: 12 Cigars Per Day: 0 Hx Chewing Tobacco Use: No Initiated information on smoking cessation: Yes 'Breaking Loose' booklet given: 03/25/17 - Substance & Tx. History Hx Alcohol Use: No Hx Substance Use: Yes Substance Use Type: Cocaine, Heroin, Marijuana Hx Substance Use Treatment: Yes ([facility] 03/04/17 TO 03/09/17) - Substances Abused Heroin Route: Inhalation Frequency: Daily Amount used: 2 BAGS Age of first use: 24 Date of Last Use: 03/24/17 Cocaine Route: Inhalation Frequency: 3-6 times per week Amount used: 20$ Age of first use: 23 Date of Last Use: 03/23/17 Marijuana/Hashish Route: Smoking Frequency: 1-2 times per week Amount used: 10$ Age of first use: 17 Date of Last Use: 03/23/17 Family Disease History - Family Disease History Family Disease History: [place]: Mother (), Sister, Other: Father (no contact ), Mother, Brother (ADDICTED TO DRUGS) Admission Physical Exam [facility] - Vital Signs Vital Signs: Vital Signs - 24 hr 03/25/17 16:54 Temperature 96.5 F L Pulse Rate 84 Respiratory 18 Rate Blood Pressure 142/74 - Physical General Appearance: Yes: Moderate Distress, Tremorous, Irritable, Sweating, Anxious HEENTM: Yes: Normal ENT Inspection, ELOINA, Pharynx Normal Respiratory: Yes: Lungs Clear, Normal Breath Sounds, No Respiratory Distress Neck: Yes: Within Normal Limits, Supple, Trachea in good position Breast: Yes: Within Normal Limits Cardiology: Yes: Within Normal Limits, Regular Rhythm, Regular Rate, S1, S2 Abdominal: Yes: Within Normal Limits, Normal Bowel Sounds, Non Tender, Flat, Soft Genitourinary: Yes: Within Normal Limits Musculoskeletal: Yes: full range of Motion, Back pain, Joint Stiffness, Muscle Pain Extremities: Yes: Tremors Neurological: Yes: marble coper II-XII NML intact, Alert, Motor Strength 5/5 Integumentary: Yes: Dry Lymphatic: Yes: Within Normal Limits - Diagnostic (1) Opioid dependence with withdrawal Current Visit: No Status: Chronic Comment: . (2) Insomnia secondary to depression with anxiety Current Visit: Yes Status: Acute (3) Drug-induced mood disorder Current Visit: No Status: Acute Comment: . (4) Weight loss Current Visit: No Status: Acute (5) Cannabis dependence Current Visit: No Status: Chronic (6) Cocaine dependence Current Visit: No Status: Chronic Qualifiers: Substance use status: uncomplicated Qualified Code(s): F14.20 - Cocaine dependence, uncomplicated Comment: . (7) Nicotine dependence Current Visit: No Status: Chronic Qualifiers: Nicotine product type: cigarettes Substance use status: in withdrawal Qualified Code(s): F17.213 - Nicotine dependence, cigarettes, with withdrawal Comment: . (8) Hepatitis C Current Visit: No Status: Resolved Qualifiers: Viral hepatitis chronicity: chronic Hepatic coma status: without hepatic coma Qualified Code(s): B18.2 - Chronic viral hepatitis C (9) Positive PPD Current Visit: No Status: Resolved Cleared for Admission [facility] - Detox or Rehab [facility] Level of Care: Medically Managed Detox Regimen/Protocol: Methadone [facility] Breath Alcohol Content Breath Alcohol Content: 0 Urine Drug Screen - Results Drug Screen Negative: No Urine Drug Screen Results: THC-Marijuana, TRAVIS-Cocaine, OPI-Opiates, BZO- Benzodiazepines, OXY-Oxycodone
[2017-03-25] MEDS ORDERED: MAGNESIUM HYDROX 2400MG/30ML ORAL SUSPENSION 30 ML CUP PO PRN (17:20)
[2017-03-25] MEDS ORDERED: LOPERAMIDE HCL 2 MG CAPSULE PO PRN (17:20)
[2017-03-25] MEDS ORDERED: P-EPHED 60MG/TRIPROLIDI 2.5MG TABLET PO PRN (17:20)
[2017-03-25] MEDS ORDERED: IBUPROFEN 400 MG TABLET (FP) PO PRN (17:20)
[2017-03-25] MEDS ORDERED: MAGNESIUM CITRATE 300 ML BOTTLE PO PRN (17:20)
[2017-03-25] MEDS ORDERED: ACETAMINOPHEN 325 MG TABLET (FP) PO PRN (17:20)
[2017-03-25] MEDS ORDERED: MENTHOL/PHENOL 1 EACH UD MM PRN (17:20)
[2017-03-25] MEDS ORDERED: METHADONE HCL 10 MG TABLET (FOR DETOX USE ONLY) PO ONE ×2 (17:20→23:00)
[2017-03-25] MEDS ORDERED: MAG HYDROX/AL HYDROX/SIMETH 30 ML UNIT-DOSE CUP PO PRN (17:20)
[2017-03-25] MEDS ORDERED: guaiFENesin/D-METHORPHAN HB 10 ML UNIT-DOSE CUPS PO PRN (17:20)
[2017-03-25] MEDS ORDERED: hydrOXYzine PAMOATE 25 MG CAPSULE (FP) PO PRN (17:20)
[2017-03-25] MEDS: NICOTINE 21 MG/24 HOURS TOPICAL PATCH TD SCH (18:17)
[2017-03-25] MEDS: diazePAM 5 MG TABLET PO PRN (18:17)
[2017-03-25 19:44] LABS: URINE APPEARANCE CLEAR; URINE BILIRUBIN NEGATIVE (NEGATIVE); URINE BLOOD NEGATIVE (NEGATIVE); URINE COLOR YELLOW; URINE GLUCOSE (UA) NEGATIVE (NEGATIVE); URINE KETONE NEGATIVE (NEGATIVE); URINE LEUK ESTERASE NEGATIVE (NEGATIVE); URINE NITRITE NEGATIVE (NEGATIVE); URINE PROTEIN NEGATIVE (NEGATIVE); URINE UROBILINOGEN NEGATIVE mg/dL (0.2-1.0)
[2017-03-25] MEDS: THIAMINE HCL 100 MG TABLET (FP) PO SCH (22:14)
[2017-03-26] MEDS: diazePAM 5 MG TABLET PO PRN ×2 (08:40→22:00)
[2017-03-26 09:52] LABS: HEMATOCRIT 38.1 % (35.4-49); HEMOGLOBIN 12.8 GM/dL (11.7-16.9); MCH 30.9 pg (25.7-33.7); MCHC 33.4 g/dl (32.0-35.9); MEAN CELL VOLUME 92.4 fl (80-96); MEAN PLT VOLUME 9.5 fl (7.5-11.1); PLATELET COUNT 190 K/MM3 (134-434); RBC 4.13 M/mm3 (4.00-5.60); WHITE BLOOD COUNT 7.7 K/mm3 (4.0-10.0)
[2017-03-26 09:57] LABS: ALBUMIN 3.3 g/dl (3.4-5.0); ANION GAP 8 (8-16); BLOOD UREA NITROGEN 14 mg/dL (7-18); CALCIUM 8.4 mg/dL (8.5-10.1); CHLORIDE 105 mmol/L (98-107); CO2 27 mmol/L (21-32); CREATININE 0.8 mg/dL (0.7-1.3); GLUCOSE,RANDOM 76 mg/dL (74-106); SGOT/AST 11 U/L (15-37); SGPT/ALT 16 U/L (12-78); SODIUM 140 mmol/L (136-145)
[2017-03-26 09:58] LABS: ALK PHOS 28 U/L (45-117); BILIRUBIN,TOTAL 0.2 mg/dL (0.2-1.0); TOT PROT 6.5 g/dl (6.4-8.2)
[2017-03-26] MEDS ORDERED: METHADONE HCL 10 MG TABLET (FOR DETOX USE ONLY) PO ONE (10:00)
[2017-03-26] MEDS: NICOTINE 21 MG/24 HOURS TOPICAL PATCH TD SCH (10:05)
[2017-03-26] MEDS: PRENATAL VITAMINS W/ FOLIC ACID TABLET (FP) PO SCH (10:06)
[2017-03-26] MEDS ORDERED: FLU VACCINE QUAD 60 MCG/0.5 ML (MDV 17-18) IM ONE (12:00)
--- NOTE | 2017-03-26 12:53 | EKG ---
Test Reason : Blood Pressure : / mmHG Vent. Rate : 070 BPM Atrial Rate : 070 BPM P-R Int : 182 ms QRS Dur : 084 ms QT Int : 396 ms P-R-T Axes : 078 081 073 degrees QTc Int : 427 ms NORMAL SINUS RHYTHM NONSPECIFIC ST AND T WAVE ABNORMALITY ABNORMAL ECG WHEN COMPARED WITH ECG OF 04-MAR-2017 13:13, NO SIGNIFICANT CHANGE WAS FOUND Confirmed by REBECA ODELL, EDOUARD ([id number]) on 03/26/2017 12:52:40 PM Referred By: Fernandez Valdovinos Confirmed By:EDOUARD JOSE MD
--- NOTE | 2017-03-26 13:39 | CONSULT ---
[facility] Psychiatric Consult - Data Date of interview: 03/26/17 Admission source: [facility] Identifying data: Another admission to [facility] for this 56 y/o AA male seeking detox treatment on for heroin,marihuana and cocaine dependence.Patient is in a long standing common-law relationship (no children), domiciled and currently employed. Substance Abuse History: Discussed in this session.Patient confirmed continuous use of caocaine,cannabis and heroin.See details in current [facility] report .Smoking history: Current every day smoker. Have you smoked in the past 12 months: Yes. Aproximately how many cigarettes per day: 12. Cigars Per Day: 0. Hx Chewing Tobacco Use: No. Initiated information on smoking cessation: Yes. 'Breaking Loose' booklet given: 03/25/17. - Substance & Tx. History. Hx Alcohol Use: No. Hx Substance Use: Yes. Substance Use Type: Cocaine, Heroin, Marijuana. Hx Substance Use Treatment: Yes ([facility] 03/04/17 TO 03/09/17). - Substances Abused. Heroin. Route: Inhalation. Frequency: Daily. Amount used: 2 BAGS. Age of first use: 24. Date of Last Use: 03/24/17. Cocaine. Route: Inhalation. Frequency: 3-6 times per week. Amount used: 20$. Age of first use : 23. Date of Last Use: 03/23/17. Marijuana/Hashish. Route: Smoking. Frequency: 1-2 times per week. Amount used: 10$. Age of first use: 17. Date of Last Use: 03/23/17 Medical History: Hepatitis C. Psychiatric History: No history of psychiatric hospitalizations.Diagnosed with MDD (while incarcerated) and treated in the past with sertraline and seroquel.Mr Medina indicates that he dropped out of psychiaric OPD care after his release from correction.Has been off psychotropic medications for months. No current OPD care providers.Denies history of suicide attempts.Mr Medina used to attend the [facility] program ([facility]). Physical/Sexual Abuse/Trauma History: Patient denies history of abuse.Traumatized by eight consecutive years of incarceration.Currently on parole. Additional Comment: Urine Drug Screen Results: THC-Marijuana, TRAVIS-Cocaine, OPI- Opiates, BZO-Benzodiazepines, OXY-Oxycodone.Noted. Mental Status Exam - Mental Status Exam Alert and Oriented to: Time, Place, Person Cognitive Function: Good Patient Appearance: Well Groomed Mood: Withdrawn, Anxious, Hopeful Affect: Mood Congruent, Constricted Patient Behavior: Fatigued, Appropriate, Cooperative Speech Pattern: Clear, Appropriate Voice Loudness: Normal Thought Process: Intact, Goal Oriented Thought Disorder: Not Present Hallucinations: Denies Suicidal Ideation: Denies Homicidal Ideation: Denies Insight/Judgement: Poor Sleep: Poorly, Difficulty falling asleep Appetite: Good Muscle strength/Tone: Normal Gait/Station: Normal Psychiatric Findings - Problem List ([place] 1, 2,3) (1) Opioid dependence with withdrawal Current Visit: Yes Status: Acute Comment: . (2) Cocaine dependence Current Visit: Yes Status: Acute Qualifiers: Substance use status: uncomplicated Qualified Code(s): F14.20 - Cocaine dependence, uncomplicated Comment: . (3) Cannabis dependence Current Visit: Yes Status: Acute (4) Nicotine dependence Current Visit: Yes Status: Acute Qualifiers: Nicotine product type: cigarettes Substance use status: in withdrawal Qualified Code(s): F17.213 - Nicotine dependence, cigarettes, with withdrawal Comment: . (5) Drug-induced mood disorder Current Visit: Yes Status: Acute Comment: . (6) Insomnia Current Visit: Yes Status: Acute Qualifiers: Insomnia type: unspecified Qualified Code(s): G47.00 - Insomnia, unspecified Comment: . - Initial Treatment Plan Initial Treatment Plan: Psychoeducation and support provided in this session.Sleep hygiene discussed.Detoxification treatment in effect.Seroquel 50 mg po hs.Ordered at patient's specific request.Side effects/benefits reviewed with the patient.Mr Medina expressed his agreement to this careplan.Observation.
--- NOTE | 2017-03-26 14:06 | PN ---
BHS COWS - Scale Resting Pulse: 0= [place] 80 or Below Sweatin=Flushed/Facial Moisture Restless Observation: 3= Extraneous Movement Pupil Size: 0= Normal to Room Light Bone or Joint Aches: 1= Mild Discomfort Runny Nose/ Eye Tearin= Nasal Congestion GI Upset > 30mins: 1= Stomach Cramp Tremor Observation of Outstretched Hands: 2= Slight Tremor Visible Yawning Observation: 0= None Anxiety or Irritability: 2=Irritable/Anxious Goose Flesh Skin: 0=Smooth Skin COWS Score: 12 BHS Progress Note (SOAP) Subjective: shakes sweats Objective: 03/26/17 14:13 No acute distress noted Assessment: 03/26/17 14:14 Vital Signs Temperature 96.5 F L 03/26/17 13:08 Pulse Rate 55 L 03/26/17 13:08 Respiratory Rate 18 03/26/17 13:08 Blood Pressure 120/68 03/26/17 13:08 O2 Sat by Pulse Oximetry (%) Laboratory Last Values WBC 7.7 K/mm3 (4.0-10.0) D 03/26/17 07:00 RBC 4.13 M/mm3 (4.00-5.60) 03/26/17 07:00 Hgb 12.8 GM/dL (11.7-16.9) 03/26/17 07:00 Hct 38.1 % (35.4-49) 03/26/17 07:00 MCV 92.4 fl (80-96) 03/26/17 07:00 MCH 30.9 pg (25.7-33.7) 03/26/17 07:00 MCHC 33.4 g/dl (32.0-35.9) 03/26/17 07:00 RDW 14.0 % (11.9-15.9) 03/26/17 07:00 Plt Count 190 K/MM3 (134-434) 03/26/17 07:00 MPV 9.5 fl (7.5-11.1) D 03/26/17 07:00 Sodium 140 mmol/L (136-145) 03/26/17 07:00 Potassium 4.0 mmol/L (3.5-5.1) 03/26/17 07:00 Chloride 105 mmol/L (98-107) 03/26/17 07:00 Carbon Dioxide 27 mmol/L (21-32) 03/26/17 07:00 Anion Gap 8 (8-16) 03/26/17 07:00 BUN 14 mg/dL (7-18) 03/26/17 07:00 Creatinine 0.8 mg/dL (0.7-1.3) 03/26/17 07:00 Creat Clearance w eGFR > 60 (>60) 03/26/17 07:00 Random Glucose 76 mg/dL (74-106) 03/26/17 07:00 Calcium 8.4 mg/dL (8.5-10.1) L 03/26/17 07:00 Total Bilirubin 0.2 mg/dL (0.2-1.0) D 03/26/17 07:00 AST 11 U/L (15-37) L D 03/26/17 07:00 ALT 16 U/L (12-78) D 03/26/17 07:00 Alkaline Phosphatase 28 U/L (45-117) L D 03/26/17 07:00 Total Protein 6.5 g/dl (6.4-8.2) 03/26/17 07:00 Albumin 3.3 g/dl (3.4-5.0) L 03/26/17 07:00 Urine Color Yellow 03/25/17 18:37 Urine Appearance Clear 03/25/17 18:37 Urine pH 5.0 (5.0-8.0) 03/25/17 18:37 Ur Specific [place] 1.024 (1.001-1.035) 03/25/17 18:37 Urine Protein Negative (NEGATIVE) 03/25/17 18:37 Urine Glucose (UA) Negative (NEGATIVE) 03/25/17 18:37 Urine Ketones Negative (NEGATIVE) 03/25/17 18:37 Urine Blood Negative (NEGATIVE) 03/25/17 18:37 Urine Nitrite Negative (NEGATIVE) 03/25/17 18:37 Urine Bilirubin Negative (NEGATIVE) 03/25/17 18:37 Urine Urobilinogen Negative mg/dL (0.2-1.0) 03/25/17 18:37 Ur Leukocyte Esterase Negative (NEGATIVE) 03/25/17 18:37 RPR Titer Nonreactive (NONREACTIVE) 03/26/17 07:00 labs noted Plan: continue detox
[2017-03-26] MEDS: THIAMINE HCL 100 MG TABLET (FP) PO SCH (22:00)
[2017-03-26] MEDS: QUEtiapine FUMARATE 50 MG TABLET PO SCH (22:00)
[2017-03-27] MEDS: diazePAM 5 MG TABLET PO PRN ×2 (08:22→22:02)
[2017-03-27] MEDS ORDERED: METHADONE HCL 5 MG TABLET (FOR DETOX USE ONLY) PO ONE (10:00)
[2017-03-27] MEDS: PRENATAL VITAMINS W/ FOLIC ACID TABLET (FP) PO SCH (10:17)
[2017-03-27] MEDS: NICOTINE 21 MG/24 HOURS TOPICAL PATCH TD SCH (10:18)
--- NOTE | 2017-03-27 12:30 | PN ---
[facility] CIWA - CIWA Score Nausea/Vomitin-No Nausea/No Vomiting Muscle Tremors: 3 Anxiety: 4-Mod. Anxious/Guarded Agitation: 2 Paroxysmal Sweats: 3 Orientation: 2-Disoriented Date<2 days Tacttile Disturbances: 2-Mild Itch/Numbness/Burn Auditory Disturbances: 0-None Visual Disturbances: 2-Mild Sensitivity Headache: 0-None Present CIWA-Ar Total Score: 18 BHS COWS - Scale Resting Pulse: 0= [place] 80 or Below Sweatin= Chills/Flushing Restless Observation: 1= Difficult to Sit Still Pupil Size: 0= Normal to Room Light Bone or Joint Aches: 2= Severe Diffuse Aches Runny Nose/ Eye Tearin= Runny Nose/Eyes GI Upset > 30mins: 1= Stomach Cramp Tremor Observation of Outstretched Hands: 2= Slight Tremor Visible Yawning Observation: 2= >3x During Session Anxiety or Irritability: 2=Irritable/Anxious Goose Flesh Skin: 0=Smooth Skin COWS Score: 13 S Progress Note (SOAP) Subjective: Fatigue, Tremors, Interrupted Sleep, Sweating. Objective: PT. A & O X 2 (UNCERTAIN ABOUT CURRENT DAY/ DATE). NO ACUTE DISTRESS. 03/27/17 12:29 Vital Signs Temperature 98.2 F 03/27/17 08:59 Pulse Rate 56 L 03/27/17 08:59 Respiratory Rate 18 03/27/17 08:59 Blood Pressure 116/66 03/27/17 08:59 O2 Sat by Pulse Oximetry (%) Laboratory Tests 03/25/17 03/26/17 03/26/17 18:37 07:00 07:00 WBC 7.7 D RBC 4.13 Hgb 12.8 Hct 38.1 MCV 92.4 MCH 30.9 MCHC 33.4 RDW 14.0 Plt Count 190 MPV 9.5 D Sodium 140 Potassium 4.0 Chloride 105 Carbon Dioxide 27 Anion Gap 8 BUN 14 Creatinine 0.8 Creat Clearance w eGFR > 60 Random Glucose 76 Calcium 8.4 L Total Bilirubin 0.2 D AST 11 L D ALT 16 D Alkaline Phosphatase 28 L D Total Protein 6.5 Albumin 3.3 L Urine Color Yellow Urine Appearance Clear Urine pH 5.0 Ur Specific [place] 1.024 Urine Protein Negative Urine Glucose (UA) Negative Urine Ketones Negative Urine Blood Negative Urine Nitrite Negative Urine Bilirubin Negative Urine Urobilinogen Negative Ur Leukocyte Esterase Negative RPR Titer 03/26/17 07:00 WBC RBC Hgb Hct MCV MCH MCHC RDW Plt Count MPV Sodium Potassium Chloride Carbon Dioxide Anion Gap BUN Creatinine Creat Clearance w eGFR Random Glucose Calcium Total Bilirubin AST ALT Alkaline Phosphatase Total Protein Albumin Urine Color Urine Appearance Urine pH Ur Specific [place] Urine Protein Urine Glucose (UA) Urine Ketones Urine Blood Urine Nitrite Urine Bilirubin Urine Urobilinogen Ur Leukocyte Esterase RPR Titer Nonreactive LABS NOTED. Assessment: 03/27/17 12:30 WITHDRAWAL SYMPTOMS. Plan: CONTINUE DETOX.
[2017-03-27] MEDS: QUEtiapine FUMARATE 50 MG TABLET PO SCH (22:02)
[2017-03-27] MEDS: THIAMINE HCL 100 MG TABLET (FP) PO SCH (22:02)
[2017-03-28] MEDS ORDERED: METHADONE HCL 5 MG TABLET (FOR DETOX USE ONLY) PO ONE (10:00)
[2017-03-28] MEDS: NICOTINE 21 MG/24 HOURS TOPICAL PATCH TD SCH (10:03)
[2017-03-28] MEDS: diazePAM 5 MG TABLET PO PRN (10:03)
[2017-03-28] MEDS: PRENATAL VITAMINS W/ FOLIC ACID TABLET (FP) PO SCH (10:03)
--- NOTE | 2017-03-28 13:46 | PN ---
BHS Progress Note (SOAP) Subjective: Fatigue, Tremors, Interrupted Sleep. Objective: [PT. A & O X 2 (UNCERTAIN ABOUT CURRENT DAY / DATE). NO ACUTE DISTRESS. 03/28/17 13:46 Vital Signs Temperature 96.1 F L 03/28/17 13:42 Pulse Rate 62 03/28/17 13:42 Respiratory Rate 18 03/28/17 13:42 Blood Pressure 115/72 03/28/17 13:42 O2 Sat by Pulse Oximetry (%) Laboratory Tests 03/25/17 03/26/17 03/26/17 18:37 07:00 07:00 WBC 7.7 D RBC 4.13 Hgb 12.8 Hct 38.1 MCV 92.4 MCH 30.9 MCHC 33.4 RDW 14.0 Plt Count 190 MPV 9.5 D Sodium 140 Potassium 4.0 Chloride 105 Carbon Dioxide 27 Anion Gap 8 BUN 14 Creatinine 0.8 Creat Clearance w eGFR > 60 Random Glucose 76 Calcium 8.4 L Total Bilirubin 0.2 D AST 11 L D ALT 16 D Alkaline Phosphatase 28 L D Total Protein 6.5 Albumin 3.3 L Urine Color Yellow Urine Appearance Clear Urine pH 5.0 Ur Specific [place] 1.024 Urine Protein Negative Urine Glucose (UA) Negative Urine Ketones Negative Urine Blood Negative Urine Nitrite Negative Urine Bilirubin Negative Urine Urobilinogen Negative Ur Leukocyte Esterase Negative RPR Titer 03/26/17 07:00 WBC RBC Hgb Hct MCV MCH MCHC RDW Plt Count MPV Sodium Potassium Chloride Carbon Dioxide Anion Gap BUN Creatinine Creat Clearance w eGFR Random Glucose Calcium Total Bilirubin AST ALT Alkaline Phosphatase Total Protein Albumin Urine Color Urine Appearance Urine pH Ur Specific [place] Urine Protein Urine Glucose (UA) Urine Ketones Urine Blood Urine Nitrite Urine Bilirubin Urine Urobilinogen Ur Leukocyte Esterase RPR Titer Nonreactive LABS NOTED. Assessment: 03/28/17 13:48 WITHDRAWAL SYMPTOMS. Plan: CONTINUE DETOX.
[2017-03-28] MEDS: THIAMINE HCL 100 MG TABLET (FP) PO SCH (22:02)
[2017-03-28] MEDS: QUEtiapine FUMARATE 50 MG TABLET PO SCH (22:02)
[2017-03-29] MEDS ORDERED: METHADONE HCL 10 MG TABLET (FOR DETOX USE ONLY) PO ONE (10:00)
[2017-03-29] MEDS: PRENATAL VITAMINS W/ FOLIC ACID TABLET (FP) PO SCH (10:37)
[2017-03-29] MEDS: NICOTINE 21 MG/24 HOURS TOPICAL PATCH TD SCH (10:37)
--- NOTE | 2017-03-29 11:32 | PN ---
BHS Progress Note (SOAP) Subjective: Tremors, Sweating. Objective: PT. A & O X 3, OBSERVED AMBULATING ON UNIT. NO ACUTE DISTRESS. 03/29/17 11:29 Vital Signs Temperature 98.6 F 03/29/17 09:14 Pulse Rate 66 03/29/17 09:14 Respiratory Rate 18 03/29/17 09:14 Blood Pressure 119/64 03/29/17 09:14 O2 Sat by Pulse Oximetry (%) Laboratory Tests 03/25/17 03/26/17 03/26/17 18:37 07:00 07:00 WBC 7.7 D RBC 4.13 Hgb 12.8 Hct 38.1 MCV 92.4 MCH 30.9 MCHC 33.4 RDW 14.0 Plt Count 190 MPV 9.5 D Sodium 140 Potassium 4.0 Chloride 105 Carbon Dioxide 27 Anion Gap 8 BUN 14 Creatinine 0.8 Creat Clearance w eGFR > 60 Random Glucose 76 Calcium 8.4 L Total Bilirubin 0.2 D AST 11 L D ALT 16 D Alkaline Phosphatase 28 L D Total Protein 6.5 Albumin 3.3 L Urine Color Yellow Urine Appearance Clear Urine pH 5.0 Ur Specific [place] 1.024 Urine Protein Negative Urine Glucose (UA) Negative Urine Ketones Negative Urine Blood Negative Urine Nitrite Negative Urine Bilirubin Negative Urine Urobilinogen Negative Ur Leukocyte Esterase Negative RPR Titer 03/26/17 07:00 WBC RBC Hgb Hct MCV MCH MCHC RDW Plt Count MPV Sodium Potassium Chloride Carbon Dioxide Anion Gap BUN Creatinine Creat Clearance w eGFR Random Glucose Calcium Total Bilirubin AST ALT Alkaline Phosphatase Total Protein Albumin Urine Color Urine Appearance Urine pH Ur Specific [place] Urine Protein Urine Glucose (UA) Urine Ketones Urine Blood Urine Nitrite Urine Bilirubin Urine Urobilinogen Ur Leukocyte Esterase RPR Titer Nonreactive LABS NOTED. Assessment: WITHDRAWAL SYMPTOMS. 03/29/17 11:31 Plan: CONTINUE DETOX.
[2017-03-29] MEDS: QUEtiapine FUMARATE 50 MG TABLET PO SCH (22:04)
[2017-03-29] MEDS: THIAMINE HCL 100 MG TABLET (FP) PO SCH (22:04)
[2017-03-30] MEDS ORDERED: METHADONE HCL 5 MG TABLET (FOR DETOX USE ONLY) PO ONE (06:00)
[2017-03-30 09:24] VITALS: BP 127/83; PULSE 78; TEMP 96.9
[2017-03-30] MEDS: PRENATAL VITAMINS W/ FOLIC ACID TABLET (FP) PO SCH (10:12)
[2017-03-30] MEDS: NICOTINE 21 MG/24 HOURS TOPICAL PATCH TD SCH (10:12)
--- NOTE | 2017-03-30 17:21 | DS ---
[facility] Detox Discharge Summary Admission Date: 03/25/17 Discharge Date: 03/30/17 - History Present History: Cannabis Dependence, Cocaine Dependence, Opioid Dependence Additional Comments: PATIENT GOING TO [facility] ([place], [place] FOR AFTERCARE. PATIENT WAS DISCHARGED FROM DETOX UNIT IN STABLE MEDICAL CONDITION. Pertinent Past History: Depression, Insomnia, Anxiety, Hep C (treated), History of Positive PPD, Nicotine Dependence, Weight Loss. - Physical Exam Results Vital Signs: Vital Signs Temperature 96.9 F L 03/30/17 09:23 Pulse Rate 78 03/30/17 09:23 Respiratory Rate 18 03/30/17 09:23 Blood Pressure 127/83 03/30/17 09:23 O2 Sat by Pulse Oximetry (%) Pertinent Admission Physical Exam Findings: WITHDRAWAL SYMPTOMS. Laboratory Tests 03/25/17 03/26/17 03/26/17 18:37 07:00 07:00 WBC 7.7 D RBC 4.13 Hgb 12.8 Hct 38.1 MCV 92.4 MCH 30.9 MCHC 33.4 RDW 14.0 Plt Count 190 MPV 9.5 D Sodium 140 Potassium 4.0 Chloride 105 Carbon Dioxide 27 Anion Gap 8 BUN 14 Creatinine 0.8 Creat Clearance w eGFR > 60 Random Glucose 76 Calcium 8.4 L Total Bilirubin 0.2 D AST 11 L D ALT 16 D Alkaline Phosphatase 28 L D Total Protein 6.5 Albumin 3.3 L Urine Color Yellow Urine Appearance Clear Urine pH 5.0 Ur Specific [place] 1.024 Urine Protein Negative Urine Glucose (UA) Negative Urine Ketones Negative Urine Blood Negative Urine Nitrite Negative Urine Bilirubin Negative Urine Urobilinogen Negative Ur Leukocyte Esterase Negative RPR Titer 03/26/17 07:00 WBC RBC Hgb Hct MCV MCH MCHC RDW Plt Count MPV Sodium Potassium Chloride Carbon Dioxide Anion Gap BUN Creatinine Creat Clearance w eGFR Random Glucose Calcium Total Bilirubin AST ALT Alkaline Phosphatase Total Protein Albumin Urine Color Urine Appearance Urine pH Ur Specific [place] Urine Protein Urine Glucose (UA) Urine Ketones Urine Blood Urine Nitrite Urine Bilirubin Urine Urobilinogen Ur Leukocyte Esterase RPR Titer Nonreactive LABS NOTED. - Treatment Hospital Course: Detox Protocol Followed, Detoxed Safely, Responded well, Discharged Condition Good, Rehab Referral Accepted Patient has Accepted a Rehab Referral to: [facility] ( [place], [place] - Medication Discharge Medications: Ambulatory Orders Quetiapine Fumarate [Seroquel] 100 mg PO HS #30 tablet 01/31/17 Quetiapine Fumarate [Seroquel -] 50 mg PO HS #30 tablet 03/26/17 - Diagnosis (1) Cannabis dependence Status: Acute (2) Cocaine dependence Status: Acute Qualifiers: Substance use status: uncomplicated Qualified Code(s): F14.20 - Cocaine dependence, uncomplicated (3) Drug-induced mood disorder Status: Acute (4) Nicotine dependence Status: Acute Qualifiers: Nicotine product type: cigarettes Substance use status: in withdrawal Qualified Code(s): F17.213 - Nicotine dependence, cigarettes, with withdrawal (5) Opioid dependence with withdrawal Status: Acute (6) Insomnia secondary to depression with anxiety Status: Acute (7) Weight loss Status: Acute (8) Insomnia Status: Acute Qualifiers: Insomnia type: unspecified Qualified Code(s): G47.00 - Insomnia, unspecified - AMA Did Patient Leave Against Medical Advice: No
== END 2017-03-30 12:48 | disposition home or self-care (01) | DRG 773 ==
LOC: YASAS 16:36 → Y3N 17:22
PROVIDERS: ADMIT Internal Medicine; ATTEND Internal Medicine
PROC: HZ2ZZZZ Detoxification Services for Substance Abuse Treatment (ICD-10-PCS; principal; 2017-03-25)
DX: F11.23 Opioid dependence with withdrawal (principal); F14.20 Cocaine dependence, uncomplicated; F12.20 Cannabis dependence, uncomplicated; F17.210 Nicotine dependence, cigarettes, uncomplicated; F19.24 Other psychoactive substance dependence with psychoactive substance-induced mood disorder; F51.05 Insomnia due to other mental disorder; B18.2 Chronic viral hepatitis C; Z87.898 Personal history of other specified conditions
CPT/HCPCS: 36415; 80053; 81003; 85027; 86593; 93005; 93010

== ENCOUNTER 2017-04-13 12:28 | Inpatient (IN) | payer OTHER ==
[2017-04-13] MEDS ORDERED: guaiFENesin/D-METHORPHAN HB 10 ML UNIT-DOSE CUPS PO PRN (13:35)
[2017-04-13] MEDS ORDERED: MAGNESIUM CITRATE 300 ML BOTTLE PO PRN (13:35)
[2017-04-13] MEDS ORDERED: ACETAMINOPHEN 325 MG TABLET (FP) PO PRN (13:35)
[2017-04-13] MEDS ORDERED: P-EPHED 60MG/TRIPROLIDI 2.5MG TABLET PO PRN (13:35)
[2017-04-13] MEDS ORDERED: LOPERAMIDE HCL 2 MG CAPSULE PO PRN (13:35)
[2017-04-13] MEDS ORDERED: MAG HYDROX/AL HYDROX/SIMETH 30 ML UNIT-DOSE CUP PO PRN (13:35)
[2017-04-13] MEDS ORDERED: MAGNESIUM HYDROX 2400MG/30ML ORAL SUSPENSION 30 ML CUP PO PRN (13:35)
[2017-04-13] MEDS ORDERED: MENTHOL/PHENOL 1 EACH UD MM PRN (13:35)
[2017-04-13] MEDS ORDERED: NICOTINE POLACRILEX 2 MG GUM BUC PRN (13:35)
[2017-04-13] MEDS ORDERED: IBUPROFEN 400 MG TABLET (FP) PO PRN (13:35)
--- NOTE | 2017-04-13 13:35 | HP ---
[facility] Rehab Assess/Revision - Admission History Admitted to Rehab from[facility] Date of Admission to Rehab: 04/12/2017 - Vital signs Vital Signs: labs reviewed, lvital signs reviewed vss - Findings Detox History & Physical reviewed: Yes Concur with findings: Yes Inpatient Rehab Admission - Initial Determination Are CD services needed?: Yes Free of communicable disease: Yes Not in need of hospitalization: Yes - Rehab Admission Criteria Lacks judgement: Yes Patient is meeting Inpatient Rehab admission criteria:: Yes
[2017-04-13] MEDS: QUEtiapine FUMARATE 50 MG TABLET PO SCH (21:44)
[2017-04-13] MEDS: THIAMINE HCL 100 MG TABLET (FP) PO SCH (21:44)
[2017-04-14] MEDS: PRENATAL VITAMINS W/ FOLIC ACID TABLET (FP) PO SCH (09:40)
[2017-04-14] MEDS: NICOTINE 14 MG/24 HOURS TOPICAL PATCH TD SCH (09:40)
[2017-04-14] MEDS: hydrOXYzine PAMOATE 50 MG CAPSULE (FP) PO PRN (17:27)
[2017-04-14] MEDS: QUEtiapine FUMARATE 50 MG TABLET PO SCH (21:15)
[2017-04-14] MEDS: THIAMINE HCL 100 MG TABLET (FP) PO SCH (21:15)
[2017-04-15] MEDS: PRENATAL VITAMINS W/ FOLIC ACID TABLET (FP) PO SCH (09:30)
[2017-04-15] MEDS: NICOTINE 14 MG/24 HOURS TOPICAL PATCH TD SCH (09:30)
[2017-04-15] MEDS: hydrOXYzine PAMOATE 50 MG CAPSULE (FP) PO PRN (19:46)
[2017-04-15] MEDS: THIAMINE HCL 100 MG TABLET (FP) PO SCH (21:16)
[2017-04-15] MEDS: QUEtiapine FUMARATE 50 MG TABLET PO SCH (21:16)
--- NOTE | 2017-04-16 07:16 | HP ---
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 Smokes 12 cigarettes daily Psychiatric History: Patient reports that while he was in [facility] from 2007 to 2013, he was diagnosed with depression and treated with Zoloft and Seroquel. Claims that depression stemmed from multiple deaths of family members prior to incarceration. Since released from [facility] in 2013, the only time he received psychiatric treatment was while he attended [facility] for 2 months in 2014 and during his multiple admissions to inpatient detox/rehab in this facility. During these admissions, he received Zoloft and Seroquel or Seroquel alone. At last recent admission, he saw production team leader Mr Whiting on 04/09/17 and was prescribed Seroquel 50 mg po HS. Denies history of previous psychiatric hospitalization or suicidal attempt. At present, reports feeling depressed, anxious and sleeping poorly Physical/Sexual Abuse/Trauma History: Patient denies history of abuse. However, he reportsbeing traumatized by eight consecutive years of incarceration. Currently on parole. Additional Comment: Reports history of multiple previous arrests including 3 felony convictions. Reports being on parole till 2019 Vital Signs: Vital Signs - 24 hr 04/16/17 04/16/17 04/16/17 00:30 03:24 06:39 Temperature 96 F L Pulse Rate 78 Respiratory 16 16 18 Rate Blood Pressure 124/77 Allergies/Adverse Reactions: Allergies Allergy/AdvReac Type Severity Reaction Status Date / Time No Known Allergies Allergy Verified 04/08/17 13:40 Date of last physical exam: 04/08/17 Concur with the findings of this exam: Yes - Substance Abuse/Tx History Hx Alcohol Use: No Hx Substance Use: Yes Substance Use Type: Cocaine (Started smoking crack cocaine at age 24, consumes $ 20 worth 3-6 times weekly. Last smoked on 04/06/17), Heroin (Started using heroin at age 24, consumes 2 bags 3-6 times weekly. Last used on 04/06/17) Hx Substance Use Treatment: Yes (8 previous inpt detox & one inpt rehab) Mental Status Exam - Mental Status Exam Alert and Oriented to: Time, Place, Person Cognitive Function: Fair Patient Appearance: Disheveled Mood: Depressed, Anxious Affect: Constricted Patient Behavior: Cooperative Speech Pattern: Clear Voice Loudness: Normal Thought Process: Intact, Goal Oriented Hallucinations: Denies Suicidal Ideation: Denies Homicidal Ideation: Denies Insight/Judgement: Poor Sleep: Poorly Appetite: Poor Muscle strength/Tone: Normal Gait/Station: Normal Psychiatric Findings - Problem List ([place] 1, 2,3) (1) Opioid dependence Current Visit: Yes Status: Acute (2) Cocaine dependence Current Visit: No Status: Acute Qualifiers: Substance use status: uncomplicated Qualified Code(s): F14.20 - Cocaine dependence, uncomplicated Comment: . (3) Depressive disorder Current Visit: Yes Status: Chronic (4) Substance induced mood disorder Current Visit: Yes Status: Acute (5) Substance-induced sleep disorder Current Visit: Yes Status: Acute (6) Hepatitis C Current Visit: No Status: Resolved Qualifiers: Viral hepatitis chronicity: chronic Hepatic coma status: without hepatic coma Qualified Code(s): B18.2 - Chronic viral hepatitis C (7) Positive PPD Current Visit: No Status: Chronic - Initial Treatment Plan Initial Treatment Plan: 1) Continue Seroquel 50 mg po daily. 2) Monitor progress
[2017-04-16] MEDS: PRENATAL VITAMINS W/ FOLIC ACID TABLET (FP) PO SCH (09:42)
[2017-04-16] MEDS: NICOTINE 14 MG/24 HOURS TOPICAL PATCH TD SCH (09:42)
[2017-04-16] MEDS: hydrOXYzine PAMOATE 50 MG CAPSULE (FP) PO PRN ×2 (09:44→21:12)
[2017-04-16] MEDS: QUEtiapine FUMARATE 50 MG TABLET PO SCH (21:12)
[2017-04-16] MEDS: THIAMINE HCL 100 MG TABLET (FP) PO SCH (21:12)
[2017-04-17] MEDS: NICOTINE 14 MG/24 HOURS TOPICAL PATCH TD SCH (09:57)
[2017-04-17] MEDS: PRENATAL VITAMINS W/ FOLIC ACID TABLET (FP) PO SCH (09:57)
[2017-04-17] MEDS: hydrOXYzine PAMOATE 50 MG CAPSULE (FP) PO PRN ×2 (09:57→20:21)
[2017-04-17] MEDS: QUEtiapine FUMARATE 50 MG TABLET PO SCH (21:14)
[2017-04-17] MEDS: THIAMINE HCL 100 MG TABLET (FP) PO SCH (21:14)
[2017-04-18] MEDS: PRENATAL VITAMINS W/ FOLIC ACID TABLET (FP) PO SCH (09:51)
[2017-04-18] MEDS: hydrOXYzine PAMOATE 50 MG CAPSULE (FP) PO PRN ×3 (09:51→21:17)
[2017-04-18] MEDS: NICOTINE 14 MG/24 HOURS TOPICAL PATCH TD SCH (09:51)
[2017-04-18] MEDS: QUEtiapine FUMARATE 50 MG TABLET PO SCH (21:16)
[2017-04-18] MEDS: THIAMINE HCL 100 MG TABLET (FP) PO SCH (21:16)
[2017-04-19] MEDS: PRENATAL VITAMINS W/ FOLIC ACID TABLET (FP) PO SCH (09:41)
[2017-04-19] MEDS: NICOTINE 14 MG/24 HOURS TOPICAL PATCH TD SCH (09:41)
[2017-04-19] MEDS: hydrOXYzine PAMOATE 50 MG CAPSULE (FP) PO PRN ×3 (09:41→21:26)
[2017-04-19] MEDS: QUEtiapine FUMARATE 50 MG TABLET PO SCH (21:25)
[2017-04-19] MEDS: THIAMINE HCL 100 MG TABLET (FP) PO SCH (21:25)
[2017-04-20] MEDS: PRENATAL VITAMINS W/ FOLIC ACID TABLET (FP) PO SCH (09:47)
[2017-04-20] MEDS: NICOTINE 14 MG/24 HOURS TOPICAL PATCH TD SCH (09:47)
[2017-04-20] MEDS: hydrOXYzine PAMOATE 50 MG CAPSULE (FP) PO PRN ×2 (09:47→21:12)
[2017-04-20] MEDS: THIAMINE HCL 100 MG TABLET (FP) PO SCH (21:12)
[2017-04-20] MEDS: QUEtiapine FUMARATE 50 MG TABLET PO SCH (21:12)
[2017-04-21] MEDS: PRENATAL VITAMINS W/ FOLIC ACID TABLET (FP) PO SCH (09:50)
[2017-04-21] MEDS: NICOTINE 14 MG/24 HOURS TOPICAL PATCH TD SCH (09:50)
[2017-04-21] MEDS: hydrOXYzine PAMOATE 50 MG CAPSULE (FP) PO PRN ×2 (09:51→21:12)
[2017-04-21] MEDS: THIAMINE HCL 100 MG TABLET (FP) PO SCH (21:12)
[2017-04-21] MEDS: QUEtiapine FUMARATE 50 MG TABLET PO SCH (21:12)
[2017-04-22] MEDS ORDERED: TOLNAFTATE 1% CREAM 15 GM TUBE TP PRN (00:09)
[2017-04-22] MEDS: PRENATAL VITAMINS W/ FOLIC ACID TABLET (FP) PO SCH (09:35)
[2017-04-22] MEDS: NICOTINE 14 MG/24 HOURS TOPICAL PATCH TD SCH (09:35)
[2017-04-22] MEDS: hydrOXYzine PAMOATE 50 MG CAPSULE (FP) PO PRN ×3 (09:36→21:28)
[2017-04-22] MEDS ORDERED: TOLNAFTATE 1% CREAM 15 GM TUBE TP SCH (10:00)
[2017-04-22] MEDS: QUEtiapine FUMARATE 50 MG TABLET PO SCH (21:28)
[2017-04-22] MEDS: THIAMINE HCL 100 MG TABLET (FP) PO SCH (21:28)
[2017-04-23] MEDS: hydrOXYzine PAMOATE 50 MG CAPSULE (FP) PO PRN ×3 (09:55→21:09)
[2017-04-23] MEDS: PRENATAL VITAMINS W/ FOLIC ACID TABLET (FP) PO SCH (09:55)
[2017-04-23] MEDS: NICOTINE 14 MG/24 HOURS TOPICAL PATCH TD SCH (09:55)
[2017-04-23] MEDS: THIAMINE HCL 100 MG TABLET (FP) PO SCH (21:09)
[2017-04-23] MEDS: QUEtiapine FUMARATE 50 MG TABLET PO SCH (21:09)
[2017-04-24] MEDS: hydrOXYzine PAMOATE 50 MG CAPSULE (FP) PO PRN ×3 (09:47→21:28)
[2017-04-24] MEDS: NICOTINE 14 MG/24 HOURS TOPICAL PATCH TD SCH (09:47)
[2017-04-24] MEDS: PRENATAL VITAMINS W/ FOLIC ACID TABLET (FP) PO SCH (09:47)
[2017-04-24] MEDS: THIAMINE HCL 100 MG TABLET (FP) PO SCH (21:28)
[2017-04-24] MEDS: QUEtiapine FUMARATE 50 MG TABLET PO SCH (21:28)
--- NOTE | 2017-04-25 06:55 | PN ---
Psychiatric Progress Note Vital Signs: Vital Signs Period Temp Pulse Resp BP Sys/Hennessy Pulse Ox Last 24 Hr 98.1 F 75 18-18 122/72 Date of Session: 04/25/17 Chief Complaint:: Discharge Note HPI: Patient addressing Opoid and Cocaine Dependence comorbid with Depressive Disorder, Substance-Induced Mood Disorder and Substance-Induced Sleep Disorder ROS: Hep C, PPD+ Current Medications: Active Medications Generic Name Dose Route Start Last Admin Trade Name Freq PRN Reason Stop Dose Admin Acetaminophen 650 mg 04/13/17 13:35 Tylenol - PO Q4H PRN FEVER Al Hydroxide/Mg Hydroxide 30 ml 04/13/17 13:35 Mylanta Oral Suspension - PO Q6H PRN DYSPEPSIA Eucalyptus/Menthol/Phenol/Sorbitol 1 each 04/13/17 13:35 Cepastat Lozenge - MM Q4H PRN SORE THROAT Guaifenesin 10 ml 04/13/17 13:35 Robitussin Dm - PO Q6H PRN COUGH Hydroxyzine Pamoate 50 mg 04/13/17 13:35 04/24/17 21:28 Vistaril - PO 50 mg Q4H PRN Administration AGITATION Ibuprofen 400 mg 04/13/17 13:35 Motrin - PO Q6H PRN Pain Level 4-6 Loperamide HCl 4 mg 04/13/17 13:35 Imodium - PO Q6H PRN DIARRHEA Magnesium Citrate 300 ml 04/13/17 13:35 Citroma - PO Q48H PRN CONSTIPATION Magnesium Hydroxide 30 ml 04/13/17 13:35 Milk Of Magnesia - PO DAILY PRN CONSTIPATION Nicotine 14 mg 04/14/17 10:00 04/24/17 09:47 Nicoderm Patch - TD 14 mg DAILY JAMES Administration Nicotine Polacrilex 2 mg 04/13/17 13:35 Nicorette Gum - BUC Q2H PRN NICOTINE REPLACEMENT RX Multivit/Folic Acid/Iron 1 tab 04/14/17 10:00 04/24/17 09:47 Vitamins (Sjr) - PO 1 tab DAILY JAMES Administration Pseudoephedrine/Triprolidine 1 combo 04/13/17 13:35 Actifed - PO TID PRN NASAL CONGESTION Quetiapine Fumarate 50 mg 04/13/17 22:00 04/24/17 21:28 Seroquel - PO 50 mg HS JAMES Administration Thiamine HCl 100 mg 04/13/17 22:00 04/24/17 21:28 Vitamin B1 - PO 100 mg HS JAMES Administration Current Side Effect: No Lab tests ordered: Yes Lab tests reviewed: Yes Provider note:: Patient tommy complete this program on 04/26/17. He has met his treatment goals and will continue to address his issues in outpatient treatment at [facility]. He verbalized understanding of the negative consequences of his addiction anfd from his participation in this program, he has learned to let go of the past which is one of the things that lead him to use. He responded well to Seroquel 50 mg po HS. Script for that medication will be electronically transmitted to [facility] Pharmacy at [address] [place] [address]. He is stable for discharge on 04/26/17 Total face to face time:: 35 Mental Status Exam - Mental Status Exam Alert and Oriented to: Time, Place, Person Cognitive Function: Fair Patient Appearance: Well Groomed Mood: Hopeful, Euthymic Affect: Appropriate Patient Behavior: Cooperative Speech Pattern: Clear Voice Loudness: Normal Thought Process: Intact, Goal Oriented Thought Disorder: Not Present Hallucinations: Denies Suicidal Ideation: Denies Homicidal Ideation: Denies Insight/Judgement: Fair Sleep: Fair Appetite: Good Muscle strength/Tone: Normal Gait/Station: Normal Psychiatric Treatment Plan - Problem List (1) Opioid dependence Current Visit: Yes (2) Cocaine dependence Current Visit: No Qualifiers: Substance use status: uncomplicated Qualified Code(s): F14.20 - Cocaine dependence, uncomplicated Comment: . (3) Depressive disorder Current Visit: Yes (4) Substance induced mood disorder Current Visit: Yes (5) Substance-induced sleep disorder Current Visit: Yes (6) Hepatitis C Current Visit: No Qualifiers: Viral hepatitis chronicity: chronic Hepatic coma status: without hepatic coma Qualified Code(s): B18.2 - Chronic viral hepatitis C (7) Positive PPD Current Visit: No Initial treatment plan: Patient will be discharged tomorrow and referred to [facility] for outpatient treatment
[2017-04-25] MEDS: PRENATAL VITAMINS W/ FOLIC ACID TABLET (FP) PO SCH (10:00)
[2017-04-25] MEDS: NICOTINE 14 MG/24 HOURS TOPICAL PATCH TD SCH (10:00)
[2017-04-25] MEDS: hydrOXYzine PAMOATE 50 MG CAPSULE (FP) PO PRN ×2 (10:01→21:11)
[2017-04-25] MEDS: QUEtiapine FUMARATE 50 MG TABLET PO SCH (21:11)
[2017-04-25] MEDS: THIAMINE HCL 100 MG TABLET (FP) PO SCH (21:11)
[2017-04-26 06:44] VITALS: BP 146/81; PULSE 71; TEMP 98.2
== END 2017-04-26 07:20 | disposition home or self-care (01) | DRG 772 ==
LOC: YASAS 12:28 → Y3W 12:31
PROVIDERS: ADMIT Psychiatry & Neurology Psychiatry; ATTEND Psychiatry & Neurology Psychiatry
PROC: HZ42ZZZ Group Counseling for Substance Abuse Treatment, Cognitive-Behavioral (ICD-10-PCS; principal; 2017-04-13)
DX: F11.20 Opioid dependence, uncomplicated (principal); F14.20 Cocaine dependence, uncomplicated; F19.24 Other psychoactive substance dependence with psychoactive substance-induced mood disorder; F19.282 Other psychoactive substance dependence with psychoactive substance-induced sleep disorder; F32.9 Major depressive disorder, single episode, unspecified; B18.2 Chronic viral hepatitis C; R76.11 Nonspecific reaction to tuberculin skin test without active tuberculosis

== ENCOUNTER 2018-07-08 13:58 | Inpatient (IN) | payer OTHER ==
[2018-07-08 17:53] VITALS: BMI 21.6
--- NOTE | 2018-07-08 21:15 | HP ---
COWS - Scale Resting Pulse: 0= [place] 80 or Below Sweatin=Flushed/Facial Moisture Restless Observation: 1= Difficult to Sit Still Pupil Size: 0= Normal to Room Light Bone or Joint Aches: 1= Mild Discomfort Runny Nose/ Eye Tearin= Runny Nose/Eyes GI Upset > 30mins: 2= Nausea/Diarrhea ([id number] x 3) Tremor Observation: 2= Slight Tremor Visible Yawning Observation: 1= 1-2x During Session Anxiety or Irritability: 4=Extreme Anxiety Goose Flesh Skin: 0=Smooth Skin COWS Score: 15 CIWA Score - Admission Criteria OASAS Guidelines: Admission for Medically Managed Detox: Requires at least one of the followin. CIWA greater than 12 2. Seizures within the past 24 hours 3. Delirium tremens within the past 24 hours 4. Hallucinations within the past 24 hours 5. Acute intervention needed for co occurring medical disorder 6. Acute intervention needed for co occurring psychiatric disorder 7. Severe withdrawal that cannot be handled at a lower level of care (continued vomiting, continued diarrhea, abnormal vital signs) requiring intravenous medication and/or fluids 8. Admission ROS [facility] Chief Complaint: Heroin withdrawal symptoms Allergies/Adverse Reactions: Allergies Allergy/AdvReac Type Severity Reaction Status Date / Time No Known Allergies Allergy Verified 07/08/18 17:47 History of Present Illness: 58 years old male with 10 years of heroin dependence is seeking admission to detox. Patient was in treatment at [facility] for the period 04/13/2018 - 04/26/2018. He has medical history of Hep. C (treated) and depression. Denies suicidal ideation at this time. Exam Limitations: No Limitations - Ebola screening Have you traveled outside of the country in the last 21 days: No (N) Have you had contact with anyone from an Ebola affected area: No Have you been sick,other than usual withdrawal symptoms: No Do you have a fever: No - Review of Systems Constitutional: Chills, Loss of Appetite, Malaise, Changes in sleep, Weakness EENT: reports: Sinus Pressure Respiratory: reports: No Symptoms reported Cardiac: reports: No Symptoms Reported GI: reports: Diarrhea, Poor Appetite, Poor Fluid Intake, Abdominal cramping : reports: No Symptoms Reported Musculoskeletal: reports: No Symptoms Reported Integumentary: reports: Dryness, Flushing Neuro: reports: Headache, Tremors Endocrine: reports: No Symptoms Reported Hematology: reports: No Symptoms Reported Psychiatric: reports: Anxious, Depressed Other Systems: Reviewed and Negative Patient History - Patient Medical History Hx Anemia: No Hx Asthma: No Hx Chronic Obstructive Pulmonary Disease (COPD): No Hx Cancer: No Hx Cardiac Disorders: No Hx Congestive Heart Failure: No Hx Hypertension: No Hx Hypercholesterolemia: No Hx Pacemaker: No HX Cerebrovascular Accident: No Hx Seizures: No Hx Dementia: No Hx Diabetes: No Hx Gastrointestinal Disorders: No Hx Liver Disease: Yes (hep C) Hx Genitourinary Disorders: No Hx Sexually Transmitted Disorders: No Hx Renal Disease (ESRD): No Hx Thyroid Disease: No Hx Human Immunodeficiency Virus (HIV): No (NEGATIVE HX 2016) Hx Hepatitis C: Yes (TREATED 2016) Hx Depression: Yes (Not on medication) Hx Suicide Attempt: No (Denies suicidal ideation at this time) Hx Bipolar Disorder: No Hx Schizophrenia: No - Patient Surgical History Past Surgical History: No Hx Neurologic Surgery: No Hx Cataract Extraction: No Hx Cardiac Surgery: No Hx Lung Surgery: No Hx Abdominal Surgery: No Hx Appendectomy: No Hx Cholecystectomy: No Hx Genitourinary Surgery: No Hx Orthopedic Surgery: No Anesthesia Reaction: No - PPD History Previous Implant?: No (PPD POSITIVE. TREATED WITH INH) Documented Results: Positive w/o proof (PPD POSITIVE) Date: 01/11/17 Results: CXR negative PPD to be Administered?: No - Reproductive History Patient is a Female of Child Bearing Age (11 -55 yrs old): No (maqle) - Smoking Cessation Smoking history: Current every day smoker Have you smoked in the past 12 months: Yes Aproximately how many cigarettes per day: 12 Cigars Per Day: 0 Hx Chewing Tobacco Use: No Initiated information on smoking cessation: Yes 'Breaking Loose' booklet given: 07/08/18 - Substance & Tx. History Hx Alcohol Use: No Hx Substance Use: Yes Substance Use Type: Heroin Hx Substance Use Treatment: Yes ([facility]) - Substances abused Heroin Substance route: Inhalation Frequency: 3-6 times per week Amount used: 3 BAGS Age of first use: 24 Date of last use: 07/06/18 Marijuana/Hashish Substance route: Smoking Frequency: 1-2 times per week Amount used: $5 Age of first use: 17 Date of last use: 07/06/18 Family Disease History - Family Disease History Family Disease History: [place]: Mother (), Sister, Other: Father (no contact ), Mother, Brother (ADDICTED TO DRUGS) Admission Physical Exam [facility] - Vital Signs Vital Signs: Vital Signs - 24 hr 07/08/18 17:48 Temperature 98.8 F Pulse Rate 72 Respiratory 18 Rate Blood Pressure 143/72 - Physical General Appearance: Yes: Moderate Distress, Tremorous, Sweating, Anxious HEENTM: Yes: EOMI, Normal ENT Inspection, Normal Voice, ELOINA Respiratory: Yes: Lungs Clear, Normal Breath Sounds, No Respiratory Distress Neck: Yes: Supple Breast: Yes: Breast Exam Deferred Cardiology: Yes: Regular Rhythm, Tachycardia Abdominal: Yes: Normal Bowel Sounds Genitourinary: Yes: Within Normal Limits Back: Yes: Normal Inspection Musculoskeletal: Yes: Within Normal Limits Extremities: Yes: Normal Inspection 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 (2) Nicotine dependence Current Visit: Yes Status: Chronic Qualifiers: Nicotine product type: cigarettes Substance use status: uncomplicated Qualified Code(s): F17.210 - Nicotine dependence, cigarettes, uncomplicated Comment: . (3) Opioid dependence with withdrawal Current Visit: Yes Status: Chronic Comment: . (4) Depression Current Visit: No Status: Chronic Qualifiers: Depression Type: unspecified Qualified Code(s): F32.9 - Major depressive disorder, single episode, unspecified (5) Positive PPD Current Visit: No Status: Chronic Cleared for Admission [facility] - Detox or Rehab [facility] Level of Care: Medically Managed Detox Regimen/Protocol: Methadone Breathalyzer - Breathalyzer Breathalyzer: 0 Urine Drug Screen - Test Device Lot number: [id number] Expiration date: 03/21/20 - Control Is test valid?: Yes - Results Drug screen NEGATIVE: No Urine drug screen results: TRAVIS-Cocaine, MOP-Opiates Inpatient Rehab Admission - Rehab Decision to Admit Inpatient rehab admission?: No
[2018-07-08] MEDS ORDERED: hydrOXYzine PAMOATE 25 MG CAPSULE (FP) PO PRN (21:26)
[2018-07-08] MEDS ORDERED: cloNIDine HCL 0.1 MG TABLET PO PRN (21:26)
[2018-07-08] MEDS ORDERED: MAGNESIUM CITRATE 300 ML BOTTLE PO PRN (21:26)
[2018-07-08] MEDS ORDERED: METHOCARBAMOL 500 MG TABLET PO PRN (21:26)
[2018-07-08] MEDS ORDERED: IBUPROFEN 400 MG TABLET (FP) PO PRN (21:26)
[2018-07-08] MEDS ORDERED: ACETAMINOPHEN 325 MG TABLET (FP) PO PRN ×2 (21:26)
[2018-07-08] MEDS ORDERED: MENTHOL/PHENOL 1 EACH UD MM PRN (21:26)
[2018-07-08] MEDS ORDERED: MAG HYDROX/AL HYDROX/SIMETH 30 ML UNIT-DOSE CUP PO PRN (21:26)
[2018-07-08] MEDS ORDERED: NICOTINE POLACRILEX 2 MG GUM BUC PRN (21:26)
[2018-07-08] MEDS ORDERED: MAGNESIUM HYDROX 2400MG/30ML ORAL SUSPENSION 30 ML CUP PO PRN (21:26)
[2018-07-08] MEDS ORDERED: BISMUTH SUBSALICYLATE 524 MG/30 ML UD PO PRN (21:26)
[2018-07-08] MEDS: MELATONIN 5 MG TABLETS PO PRN (22:48)
[2018-07-08] MEDS: THIAMINE HCL 100 MG TABLET (FP) PO SCH (22:48)
[2018-07-08] MEDS ORDERED: METHADONE HCL 10 MG TABLET (FOR DETOX USE ONLY) PO ONE (23:00)
--- NOTE | 2018-07-09 09:36 | PN ---
BHS COWS - Scale Resting Pulse: 0= [place] 80 or Below Sweatin= Chills/Flushing Restless Observation: 1= Difficult to Sit Still Pupil Size: 1= Pupils >than Normal Bone or Joint Aches: 2= Severe Diffuse Aches Runny Nose/ Eye Tearin= Runny Nose/Eyes GI Upset > 30mins: 2= Nausea/Diarrhea Tremor Observation of Outstretched Hands: 2= Slight Tremor Visible Yawning Observation: 2= >3x During Session Anxiety or Irritability: 2=Irritable/Anxious Goose Flesh Skin: 0=Smooth Skin COWS Score: 15 BHS Progress Note (SOAP) Subjective: alert,irritable,anxious,interrupted sleep,tremor,pain in the body and back Objective: 07/09/18 09:34 Vital Signs Temperature 97.5 F L 07/09/18 09:19 Pulse Rate 62 07/09/18 09:19 Respiratory Rate 18 07/09/18 09:19 Blood Pressure 124/75 07/09/18 09:19 O2 Sat by Pulse Oximetry (%) labs pending Assessment: 07/09/18 09:35 withdrawal symptom Plan: continue detox
[2018-07-09] MEDS ORDERED: METHADONE HCL 10 MG TABLET (FOR DETOX USE ONLY) PO ONE (10:00)
[2018-07-09 10:06] LABS: ALBUMIN 3.8 g/dl (3.4-5.0); BILIRUBIN,TOTAL 0.3 mg/dL (0.2-1); CALCIUM 9.2 mg/dL (8.5-10.1); CREATININE 1.1 mg/dL (0.55-1.3); HEMATOCRIT 39.8 % (35.4-49); HEMOGLOBIN 13.4 GM/dL (11.7-16.9); MCH 31.8 pg (25.7-33.7); MCHC 33.6 g/dl (32.0-35.9); MEAN CELL VOLUME 94.4 fl (80-96); MEAN PLT VOLUME 9.5 fl (7.5-11.1); PLATELET COUNT 167 K/MM3 (134-434); POTASSIUM 3.9 mmol/L (3.5-5.1); RBC 4.22 M/mm3 (4.00-5.60); RDW 13.6 % (11.9-15.9); TOT PROT 7.2 g/dl (6.4-8.2)
[2018-07-09] MEDS: PRENATAL VITAMINS W/ FOLIC ACID TABLET (FP) PO SCH (11:01)
[2018-07-09] MEDS: NICOTINE 14 MG/24 HOURS TOPICAL PATCH TD SCH (11:02)
--- NOTE | 2018-07-09 12:37 | CONSULT ---
[facility] Psychiatric Consult - Data Date of interview: 07/09/18 Admission source: [facility] Identifying data: Patient is a 58 year old single male, without children, domicled, unemployed, and is financially supported by friend. This is one of multiple admissions for patient. Patient admitted to for opiate dependence. Substance Abuse History: Smoking Cessation. Smoking history: Current every day smoker. Have you smoked in the past 12 months: Yes. Aproximately how many cigarettes per day: 12. Cigars Per Day: 0. Hx Chewing Tobacco Use: No. Initiated information on smoking cessation: Yes. 'Breaking Loose' booklet given : 07/08/18. - Substance & Tx. History. Hx Alcohol Use: No. Hx Substance Use: Yes. Substance Use Type: Heroin. Hx Substance Use Treatment: Yes ([facility]). - Substances abused. Heroin. Substance route: Inhalation. Frequency: 3-6 times per week. Amount used: 3 BAGS. Age of first use: 24. Date of last use: 07/06/18. Marijuana/Hashish. Substance route: Smoking. Frequency: 1-2 times per week. Amount used: $5. Age of first use: 17. Date of last use: Medical History: h/o Hep C (treated) Psychiatric History: Patient denies h/o psychiatric hospitalizations, and suicide attempt. Patient [facility] -[facility]. States he was prescribed vistaril in addition to other psychotropic medications. After his release from [facility] he reports seeing the psychiatrist in the [facility]. He has also received treatment from various detox/ rehab settings and has been prescribed zoloft and seroquel. Physical/Sexual Abuse/Trauma History: denies. Mental Status Exam - Mental Status Exam Alert and Oriented to: Time, Place, Person Cognitive Function: Good Patient Appearance: Well Groomed Mood: Euthymic Affect: Mood Congruent Patient Behavior: Cooperative Speech Pattern: Appropriate Voice Loudness: Normal Thought Process: Goal Oriented Thought Disorder: Not Present Hallucinations: Denies Suicidal Ideation: Denies Homicidal Ideation: Denies Insight/Judgement: Poor Sleep: Poorly Appetite: Fair Muscle strength/Tone: Normal Gait/Station: Normal Psychiatric Findings - Problem List ([place] 1, 2,3) (1) Cocaine dependence Current Visit: Yes Status: Chronic Qualifiers: Substance use status: uncomplicated Qualified Code(s): F14.20 - Cocaine dependence, uncomplicated Comment: . (2) Nicotine dependence Current Visit: Yes Status: Chronic Qualifiers: Nicotine product type: cigarettes Substance use status: uncomplicated Qualified Code(s): F17.210 - Nicotine dependence, cigarettes, uncomplicated Comment: . (3) Opioid dependence with withdrawal Current Visit: Yes Status: Acute Comment: . (4) Substance-induced sleep disorder Current Visit: No Status: Acute - Initial Treatment Plan Initial Treatment Plan: Psychoeducation provided. Detoxification in progress. Will order Seroquel 50mg HS. Benefits and side effects discussed. Verbal consent herrera.
[2018-07-09] MEDS: BACITRACIN 0.9 GM PACKET TP SCH (18:01)
[2018-07-09] MEDS: THIAMINE HCL 100 MG TABLET (FP) PO SCH (22:22)
[2018-07-09] MEDS: QUEtiapine FUMARATE 50 MG TABLET PO SCH (22:23)
[2018-07-10] MEDS ORDERED: METHADONE HCL 10 MG TABLET (FOR DETOX USE ONLY) PO ONE (10:00)
[2018-07-10] MEDS: NICOTINE 14 MG/24 HOURS TOPICAL PATCH TD SCH (10:24)
[2018-07-10] MEDS: PRENATAL VITAMINS W/ FOLIC ACID TABLET (FP) PO SCH (10:24)
[2018-07-10] MEDS: BACITRACIN 0.9 GM PACKET TP SCH (10:24)
[2018-07-10] MEDS ORDERED: hydrOXYzine PAMOATE 25 MG CAPSULE (FP) PO PRN (12:40)
--- NOTE | 2018-07-10 13:51 | PN ---
BHS COWS - Scale Resting Pulse: 0= [place] 80 or Below Sweatin= No chills or Flushing Restless Observation: 1= Difficult to Sit Still Pupil Size: 0= Normal to Room Light Bone or Joint Aches: 0= None Runny Nose/ Eye Tearin= Runny Nose/Eyes GI Upset > 30mins: 0= None Tremor Observation of Outstretched Hands: 0= None Yawning Observation: 1= 1-2x During Session Anxiety or Irritability: 2=Irritable/Anxious Goose Flesh Skin: 0=Smooth Skin COWS Score: 6 BHS Progress Note (SOAP) Subjective: Anxious, Interrupted Sleep. Objective: PATIENT A & O X 3, OBSERVED AMBULATING ON UNIT UNASSISTED. IN NO ACUTE DISTRESS. 07/10/18 13:52 Vital Signs Temperature 97.9 F 07/10/18 10:43 Pulse Rate 58 L 07/10/18 10:43 Respiratory Rate 18 07/10/18 10:43 Blood Pressure 126/58 L 07/10/18 10:43 O2 Sat by Pulse Oximetry (%) Laboratory Tests 07/09/18 07/09/18 07/09/18 07:00 07:00 07:00 WBC 9.0 RBC 4.22 Hgb 13.4 Hct 39.8 MCV 94.4 MCH 31.8 MCHC 33.6 RDW 13.6 Plt Count 167 MPV 9.5 Sodium 137 Potassium 3.9 Chloride 103 Carbon Dioxide 27 Anion Gap 7 L BUN 15 Creatinine 1.1 Est GFR (CKD-EPI)AfAm 85.91 Est GFR (CKD-EPI)NonAf 74.12 Random Glucose 110 H Calcium 9.2 Total Bilirubin 0.3 AST 19 ALT 16 Alkaline Phosphatase 29 L Total Protein 7.2 Albumin 3.8 RPR Titer Nonreactive LABS NOTED. Assessment: 07/10/18 13:52 WITHDRAWAL SYMPTOMS. Plan: CONTINUE DETOX.
[2018-07-10] MEDS: THIAMINE HCL 100 MG TABLET (FP) PO SCH (22:41)
[2018-07-10] MEDS: QUEtiapine FUMARATE 50 MG TABLET PO SCH (22:41)
[2018-07-10] MEDS: MELATONIN 5 MG TABLETS PO PRN (22:41)
[2018-07-11] MEDS ORDERED: METHADONE HCL 10 MG TABLET (FOR DETOX USE ONLY) PO ONE (10:00)
--- NOTE | 2018-07-11 10:03 | PN ---
BHS Progress Note (SOAP) Subjective: alert,irritable,anxious,interrupted sleep,pain in the body Objective: 07/11/18 10:01 Vital Signs Temperature 98.1 F 07/11/18 09:28 Pulse Rate 61 07/11/18 09:28 Respiratory Rate 18 07/11/18 09:28 Blood Pressure 132/74 07/11/18 09:28 O2 Sat by Pulse Oximetry (%) Assessment: 07/11/18 10:02 withdrawal symptom Plan: continue detox,discharge in am
[2018-07-11] MEDS: BACITRACIN 0.9 GM PACKET TP SCH (10:19)
[2018-07-11] MEDS: PRENATAL VITAMINS W/ FOLIC ACID TABLET (FP) PO SCH (10:19)
[2018-07-11] MEDS: NICOTINE 14 MG/24 HOURS TOPICAL PATCH TD SCH (10:20)
[2018-07-11 20:45] VITALS: BP 145/71
[2018-07-11] MEDS: THIAMINE HCL 100 MG TABLET (FP) PO SCH (22:30)
[2018-07-11] MEDS: QUEtiapine FUMARATE 50 MG TABLET PO SCH (22:30)
[2018-07-12] MEDS ORDERED: METHADONE HCL 5 MG TABLET (FOR DETOX USE ONLY) PO ONE (06:00)
[2018-07-12 06:33] VITALS: PULSE 18; TEMP 98.2
--- NOTE | 2018-07-12 08:16 | DS ---
[facility] Detox Discharge Summary Admission Date: 07/08/18 Discharge Date: 07/12/18 - History Present History: Cannabis Dependence, Cocaine Dependence, Opioid Dependence - Physical Exam Results Vital Signs: Vital Signs Temperature 98.2 F 07/12/18 06:00 Pulse Rate 18 L 07/12/18 06:00 Respiratory Rate 127 H 07/12/18 06:00 Blood Pressure 145/71 07/11/18 20:44 O2 Sat by Pulse Oximetry (%) - Treatment Hospital Course: Detox Protocol Followed, Detoxed Safely, Responded well, Discharged Condition Good, Rehab Referral Accepted - Medication Discharge Medications: Ambulatory Orders Quetiapine Fumarate [Seroquel -] 50 mg PO HS #30 tablet 04/25/17 - Diagnosis (1) Opioid dependence with withdrawal Current Visit: Yes Status: Chronic (2) Cocaine dependence Current Visit: Yes Status: Chronic Qualifiers: Substance use status: uncomplicated Qualified Code(s): F14.20 - Cocaine dependence, uncomplicated (3) Nicotine dependence Current Visit: Yes Status: Chronic Qualifiers: Nicotine product type: cigarettes Substance use status: uncomplicated Qualified Code(s): F17.210 - Nicotine dependence, cigarettes, uncomplicated (4) Cannabis dependence Current Visit: No Status: Acute (5) Drug-induced mood disorder Current Visit: No Status: Acute (6) Insomnia Current Visit: No Status: Acute Qualifiers: Insomnia type: unspecified Qualified Code(s): G47.00 - Insomnia, unspecified (7) Insomnia secondary to depression with anxiety Current Visit: No Status: Acute (8) MDD (major depressive disorder), recurrent, severe, with psychosis Current Visit: No Status: Acute (9) PCP abuse Current Visit: No Status: Acute (10) Substance induced mood disorder Current Visit: No Status: Acute (11) Substance induced mood disorder Current Visit: No Status: Acute (12) Substance-induced sleep disorder Current Visit: No Status: Acute (13) Weight loss Current Visit: No Status: Acute (14) Anxiety Current Visit: No Status: Chronic (15) Depression Current Visit: No Status: Chronic Qualifiers: Depression Type: unspecified Qualified Code(s): F32.9 - Major depressive disorder, single episode, unspecified (16) Depressive disorder Current Visit: No Status: Chronic (17) Positive PPD Current Visit: No Status: Chronic (18) Hepatitis C Current Visit: No Status: Resolved Qualifiers: Viral hepatitis chronicity: chronic Hepatic coma status: without hepatic coma Qualified Code(s): B18.2 - Chronic viral hepatitis C - AMA Did Patient Leave Against Medical Advice: No (referred to [facility] focus o/p)
== END 2018-07-12 09:00 | disposition home or self-care (01) | DRG 773 ==
LOC: YASAS 13:58 → Y6N 21:33
PROVIDERS: ADMIT Surgery; ATTEND Surgery
PROC: HZ2ZZZZ Detoxification Services for Substance Abuse Treatment (ICD-10-PCS; principal; 2018-07-08)
DX: F11.23 Opioid dependence with withdrawal (principal); F14.20 Cocaine dependence, uncomplicated; F12.20 Cannabis dependence, uncomplicated; F16.10 Hallucinogen abuse, uncomplicated; F17.210 Nicotine dependence, cigarettes, uncomplicated; F19.24 Other psychoactive substance dependence with psychoactive substance-induced mood disorder; F19.282 Other psychoactive substance dependence with psychoactive substance-induced sleep disorder; F51.05 Insomnia due to other mental disorder; F41.8 Other specified anxiety disorders; F32.9 Major depressive disorder, single episode, unspecified; B18.2 Chronic viral hepatitis C; R76.11 Nonspecific reaction to tuberculin skin test without active tuberculosis; R63.4 Abnormal weight loss; Z68.21 Body mass index [BMI] 21.0-21.9, adult
CPT/HCPCS: 36415; 71046-TC-FY; 80053; 85027; 86593